=== PATIENT | male | born 1955 ===

== ENCOUNTER 2025-04-03 13:57 | Outpatient (AMB) | payer MEDICARE, SELFPAY ==
--- OUTSIDE RECORDS SUMMARY | 2025-04-03 16:09 | XMS_ITS | Encounter Summary ---
Author Organization [facility] Address [address] [place] [address] [place] [address] Phone Care Team Providers Care Defence Force Senior Officer Name Role Phone Stella Oneal MD Primary Care Provider [phone] Stella Oneal MD Unavailable Reason for Visit * Reason Onset Date Comments Establish Care 04/03/2025 Encounter Details Date Type Department Care Team (Late st Contact Info) Description 04/03/[address] [facility] [address] [place] [address] Stella Oneal MD 234 [facility] 7 [place] [address] [email or web address] Establish Care Social History Tobacco Use Types Packs/Day Years Used Date Smoking Tobacco: Never Smokeless Tobacco: Never Alcohol Use Standard Drinks/Week Comments Yes 0 (1 standard drink = 0.6 oz pur e alcohol) rare Education Answer Date Recorded Are you interested in more education? Not on camilo e 11/26/2022 Are you concerned about learning? Not on file 11/26/2022 No 11/26/2022 No 11/26/2022 Digital Access Answer Date Recorded No 12/27/2022 No 12/27/2022 Reliable internet access at home? Not on file 12/27/2022 Device with a working camera? Not on file Intimate Partner Violence Answer Date R ecorded Are you denied basic needs s uch as food, clothing, or medical care? No 06/12/2024 In the past 12 months have y ou been in a relationship with a person who hurts, threatens, or tries to control you? No 06/12/2024 Are you denied basic needs s uch as food, clothing, or medical care? No 06/12/2024 In the past 12 months have y ou been in a relationship with a person who hurts, threatens, or tries to control you? No 06/12/2024 Sex and Gender Information Value Date Recorded Sex Assigned at Male 09/29/2018 11:28 AM EST Legal Sex Male 9:55 PM EDT Gender Identity Male 09/29/2018 11:28 AM EST Sexual Orientation Straight 09/29/2018 11 :28 AM EST documented as of this encounter Progress Notes * Carlos Rice - 04/03/2025 9:38 AM EDT Pt called in to schedule;e with the new provider, please contact and advise. Central Support Jacket Changer (Please do not reply to this user; this inbox is not monitored.) Thank you. documented in this encounter Plan of Treatment Upcoming Encounters Date Type Department Care Team (Late st Contact Info) Description 05/02/2025 8:00 AM EDT Office Visit [facility] [address] [place] [address] Stella Oneal MD 234 [facility], [address] [place] [address] [email or web address] 05/09/2025 9:00 AM EDT Office Visit [facility] [address] [place] [address] Aliza Marin MBBS [address] [place] [address] 06/03/2025 8:30 AM EST Office Visit [facility] [address] [facility] 3rd Floor, [address] [place] [address] Valerie Ramos, TAMAR [address] [facility], [address] [place] [address] [email or web address] documented as of this encounter Visit Diagnoses Not on filedocumented in this encounter Additional Health Concerns Infection Onset Date Last Indicated Resolved Time 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 PCP - General Family Medicine 08/09/24 Stella Oneal MD [address] [place] [address] 7 [place] [address] [email or web address] Insurance Assigned Provider 11/04/24 documented as of this encounter Additional Source Comments The information contained in this document represents components of the legal health record. It is not the complete legal health record.[facility]
--- OUTSIDE RECORDS SUMMARY | 2025-04-03 16:10 | XMS_ITS | Encounter Summary ---
Author Organization Located Within [facility] Address [address] [place] [address] Phone Care Team Providers Care Silver Solderer Name Role Phone Stella Oneal MD Primary Care Provider Aliza Marin Primary Care Provider [phone] Stella Oneal MD Primary Care Provider Stella Oneal MD Unavailable [phone] Reason for Referral * Molecular Pathology - New Request Specialty Diagnoses / Procedures Referred By Nadege justice Referred To Contact Diagnoses Hyperlipidemia LDL goal <70 JOHNSON (nonalcoholic steatohepatitis) Procedures Hemochromatosis Gene Analysis Jessica Diaz PA [address] [place] [address] Phone: tel: fax: Referral ID Status Reason Start Date Expiration Date V isits Requested Visits Authorized [id number] New Request 06/06/2024 1 1 Encounter Details Date Type Department Care Team (Latest Contact Info) Description 06/06/2024 Transcribe Orders [facility] [address] [address] Jessica Diaz PA 10 [place] [address] Hyperlipidemia LDL goal <70 (Primary Dx); JOHNSON (nonalcoholic steatohepatitis) Social History Tobacco Use Types Packs/Day Years [...] with a working camera? Not on file Sex and Gender Information Value Date Recorded Sex Assigned at Male 09/29/2018 11:28 AM EST Legal Sex Male 9:55 PM EDT Gender Identity Male 09/29/2018 11:28 AM EST Sexual Orientation Straight 09/29/2018 11 :28 AM EST documented as of this encounter Plan of Treatment Upcoming Encounters Date Type Department Care Team (Late st Contact Info) Description 05/02/2025 8:00 AM EDT Office Visit [facility] [address] [place] [address] Stella Oneal MD 234 [facility] 7 [place] [address] [email or web address] 05/09/2025 9:00 AM EDT Office Visit [facility] 30 [place] [address] Aliza Marin MBBS [address] [place] [address] 06/03/2025 8:30 AM EST Office Visit [facility] [address] [place] [address] 3rd Floor, [address] [place] [address] Valerie Ramos, TAMAR [address] [facility], [address] [place] [address] [email or web address] documented as of this encounter Results * Ferritin (06/06/2024 11:39 AM EST) FERRITIN 52 30 - 400 ug/L [facility] Blood 06/06/2024 11:3 9 AM EST 06/06/2024 11:43 AM EST Jessica LIZ LAB BLOOD ORDERABLES Final Result Performing Organization Address [facility] Co de Phone Number [address] [address] * (ABNORMAL) Iron and iron binding capacity (06/06/2024 11:39 AM EST) IRON 71 45 - 160 ug/dL [facility] IRON BINDING CAPACITY 403 228 - 428 ug/dL [facility] TRANSFERRIN SATURAT. 18(L) 20 - 55 % [facility] Blood 06/06/2024 11:3 9 AM EST 06/06/2024 11:43 AM EST Jessica LIZ LAB BLOOD ORDERABLES Final Result Performing Organization Address [facility] Co de Phone Number [address] [address] * (ABNORMAL) Lipid panel (06/06/2024 11:39 AM EST) HDL 71 mg/dL [facility] Comment: Interpretation <40 mg/dL: Low HDL cholesterol (major risk factor for CHD) Greater than or equal to 60 mg/dL: High HDL cholesterol ( negative risk factor for CHD) HDL - cholesterol is affected by a number of factors, e.g. smoking, excerise, hormones, sex and age. CHOLESTEROL 131 0 - 240 mg/dL [facility] TRIGLYCERIDES 54 30 - 160 mg/dL [facility] LDL 49(L) 50 - 129 mg/dL [facility] Comment: LDL levels in terms of risk for coronary heart disease: <100 mg/dL: Optimal 100-129 mg/dL: Near or above optimal 130-159 mg/dL: Borderline high 160-189 mg/dL: High >190 mg/dL: Very High CARDIAC RISK RATIO 1.8(L) 3.4 - 5.0 C [facility] Blood 06/06/2024 11:3 9 AM EST 06/06/2024 11:42 AM EST us Jessica LIZ LAB BLOOD ORDERABLES Final Result [facility] [address] [place] [address] * Hemochromatosis Gene Analysis (06/06/2024 11:39 AM EST) Pathologist [facility] HFE Gene analysis SEE NOTE 4 01:24 PM [facility] LAB MED AND PAT+ Comment: (NOTE) Test Result Flag Unit RefValue Hereditary Hemochromatosis HFE Test Result Summary NEGATIVE Result SEE NOTE C282Y: Not detected. H63D: Not detected. Interpretation SEE NOTE This result reduces the risk but does not rule out either a diagnosis of or predisposition for hereditary hemochromatosis (HH). This assay does not rule out the presence of other disease-causing variants in the HFE gene or in other genes associated with hemochromatosis. Non-HFE-HH causes should also be considered. These results should be interpreted in the context of clinical findings, family history, and other laboratory testing (e.g. serum transferrin-iron saturation and serum ferritin). Genetic testing and other laboratory testing of an affected family member can determine if this result is of predictive value for this individual. A genetic consultation may be of benefit. ADDITIONAL INFORMATION An online research opportunity called [employer] ([email or web address]), a project of [employer], is available for the recipient of this genetic test. This patient registry collects de-identified genetic and health information to advance the knowledge of genetic variants. [facility] is a collaborator of [employer]. This may not be applicable for all tests. Test results should be interpreted in the context of clinical findings, family history, and other laboratory data. Misinterpretation of results may occur if the information provided is inaccurate or incomplete. Rare polymorphisms exist that could lead to false-negative or false-positive results. If results obtained do not match the clinical findings, additional testing should be considered. Bone Marrow transplants from allogenic donors will interfere with testing. Call [facility] for instructions for testing patients who have received a bone marrow transplant. One or more in silico tools were used to assist in the interpretation of these results. These tools are updated regularly and predictions for a given variant may change. Additionally, the predictability of these tools for the determination of pathogenicity is currently unvalidated. This test was developed and its performance characteristics determined by [facility] in a manner consistent with CLIA requirements. This test has not been cleared or approved by the U.S. Food and Drug Administration. Specimen WB Whole Blood Method SEE NOTE Droplet Digital Polymerase Chain Reaction (ddPCR) was used to test for the following three variants in the HFE gene; C282Y, H63D, and S65C. Because of the minimal effect on iron metabolism associated with the S65C variant, it is only reported when it is found with the C282Y variant (i.e. if the patient has the C282Y/S65C genotype). Released By SEE NOTE Mark Baumann MD A portion of the testing process was performed at [facility] site [id number]. Blood 06/06/2024 11:3 9 AM EST 06/06/2024 11:42 AM EST us Jessica LIZ LAB BLOOD ORDERABLES Final Result [facility] MED AND PAT+ [address] [place] [address] * (ABNORMAL) Liver fibrosis test (06/06/2024 11:39 AM EST) Fibrosis score 0.76 [facility] Interpretation (Fibrosis) SEE NOTE [facility] Comment: (NOTE) severe fibrosis Fibro Test Score (f) Metavir Score f>=0 and f<=0.21 : F0 (no fibrosis) f>0.21 and f<=0.27 : F0-F1 (no fibrosis) f>0.27 and f<=0.31 : F1 (minimal fibrosis) f>0.31 and f<=0.48 : F1-F2 (minimal fibrosis) f>0.48 and f<=0.58 : F2 (moderate fibrosis) f>0.58 and f<=0.72 : F3 (advanced fibrosis) f>0.72 and f<=0.74 : F3-F4 (advanced fibrosis) f>0.74 and f<=1.00 : F4 (severe fibrosis) HCV Fibrosis Grade F4 Q [facility] NECROINFLAMM SCORE 0.27 Q [facility] NECROINFLAMM GRADE SEE NOTE Q [facility] Comment: (NOTE) Result: A0-A1 NECROINFLAMM INTERP SEE NOTE [facility] Comment: (NOTE) no activity ActiTest Score (a) Metavir Score a>=0 and a<=0.17 : A0 (no activity) a>0.17 and a<=0.29 : A0-A1 (no activity) a>0.29 and a<=0.36 : A1 (minimal activity) a>0.36 and a<=0.52 : A1-A2 (minimal activity) a>0.52 and a<=0.60 : A2 (significant activity) a>0.60 and a<=0.62 : A2-A3 (significant activity) a>0.62 and a<=1.00 : A3 (severe activity) A2 Macroglobulin 376(H) 106 - 279 mg/dL [facility] Haptoglobin 97 43 - 212 mg/dL [facility] Apolipoprotein A1 170 94 - 176 mg/dL [facility] TOTAL BILIRUBIN 0.7 0.2 - 1.2 mg/dL [facility] GGT 90(H) 3 - 70 U/L [facility] ALT 31 9 - 46 U/L [facility] Specimen/Product ID [id number] [employer] [facility] Comments (Chemistry) SEE NOTE [employer] [facility] Comment: (NOTE) The reliability of results is dependent on compliance with the preanalytical and analytical conditions recommended by [employer]. The tests have to be deferred for: acute hemolysis, acute hepatitis, acute inflammation, extra hepatic cholestasis. The advice of a specialist should be sought for interpretation in chronic hemolysis and Gilbert's syndrome. The test interpretation is not validated in liver transplant patients. Isolated extreme values of one of the components should lead to caution in interpreting the results. In case of discordance between a biopsy result and a test, it is recommended to seek the advice of a specialist. The causes of these discordances could be due to a flaw of the test or to a flaw in the biopsy: i.e. a liver biopsy has a 33% variability rate for one fibrosis stage. FibroTest is interpretable for chronic hepatitis B and C, alcoholic and non alcoholic steatosis. ActiTest is interpretable for chronic hepatitis B and C. The performance characteristics have been determined by [facility]. It has not been cleared or approved by the U.S. Food and Drug Administration. Performance characteristics refer to the analytical performance of the test. [email or web address], [employer], the associated logo, [employer] and all associated [employer] valle are the registered trademarks of [employer]. All third alliance party valle - (R) and (TM) - are the property of their respective owners. (C) 1310-3841 [employer]. All rights reserved. Blood 06/06/2024 11:3 9 AM EST 06/06/2024 11:42 AM EST us Jessica LIZ LAB BLOOD ORDERABLES Final Result [employer] [facility] [address] [place] [address], [place] [phone] * (ABNORMAL) Comprehensive metabolic panel (06/06/2024 11:39 AM EST) SODIUM 138 133 - 146 mmol/L [facility] POTASSIUM 4.2 3.3 - 5.1 mmol/L [facility] CHLORIDE 105 96 - 108 mmol/L [facility] CO2 20(L) 21 - 35 mmol/L [facility] BUN 18 6 - 19 mg/dL [facility] CREATININE 0.90 0.5 - 1.5 mg/dL [facility] GLUCOSE 112(H) 70 - 99 mg/dL [facility] ALBUMIN 4.2 3.9 - 4.8 g/dL [facility] TOTAL PROTEIN 7.8 6.5 - 8.0 g/dL [facility] CALCIUM 9.1 8.4 - 10.3 mg/dL [facility] ALKALINE PHOSPHATASE 72 39 - 117 U/L [facility] TOTAL BILIRUBIN 0.7 0.0 - 1.2 mg/dL [facility] AST 43(H) 0 - 37 U/L [facility] ALT 38 0 - 40 U/L [facility] GLOBULIN 3.6 1 - 4.8 g/dL [facility] EGFR 93 >59 mL/min/1.7 3m2 [facility] Comment:Estimated glomerular filtration rate calculated using the CKD-EPI refit equation. ANION GAP 17 10 - 20 mmol/L [facility] Blood 06/06/2024 11:3 9 AM EST 06/06/2024 11:43 AM EST us Jessica LIZ LAB BLOOD ORDERABLES Final Result Performing Organization Address City/State/[facility] Co de Phone Number [address] [address] * (ABNORMAL) CBC (06/06/2024 11:39 AM EST) WBC 5.61 4.00 - 11.00 K/uL [facility] RBC 4.05(L) 4.50 - 5.90 M/uL [facility] HGB 11.8(L) 13.5 - 17.5 g/dL [facility] HCT 35.7(L) 41.0 - 53.0 % [facility] PLT 107(L) 150 - 450 K/uL [facility] MCV 88.1 80.0 - 100.0 fL [facility] MCH 29.1 27.0 - 31.0 pg [facility] MCHC 33.1 32.0 - 36.0 g/dL [facility] RDW 13.2 11.5 - 14.5 % [facility] MPV 11.4 8.4 - 12.0 fL [facility] NRBC 0.00 0.00 /100 WBCs [facility] ABSOLUTE NRBC 0.00 0.00 K/uL [facility] Blood 06/06/2024 11:3 9 AM EST 06/06/2024 11:43 AM EST Jessica LIZ LAB BLOOD ORDERABLES Final Result Performing Organization Address City/[facility]/ZIP Co de Phone Number [address] [address] * Ceruloplasmin (06/06/2024 11:39 AM EST) CERULOPLASMIN 34 20 - 60 mg/dL [facility] Blood 06/06/2024 11:3 9 AM EST 06/06/2024 11:42 AM EST Jessica LIZ LAB BLOOD ORDERABLES Final Result Performing Organization Address [facility] Co de Phone Number [address] [address] * Smooth Muscle Antibody (06/06/2024 11:39 AM EST) SMOOTH MUSCLE AB NEGATIVE AT 1:20 [facility] Comment: Performing Pathologist, Josemanuel Isabel M.D., Ph.D. [phone] Normal: Negative at 1:20 Blood 06/06/2024 11:3 9 AM EST 06/06/2024 11:42 AM EST Jessica LIZ LAB BLOOD ORDERABLES Final Result Performing Organization Address City/[facility] Co de Phone Number [address] [address] * Anti-Mitochondrial Antibody (AMA) (06/06/2024 11:39 AM EST) MITOCHONDRIAL AB NEGATIVE AT 1:20 [facility] Comment: Performing Pathologist, Josemanuel Isabel M.D., Ph.D. [phone] Normal: Negative at 1:20 Blood 06/06/2024 11:3 9 AM EST 06/06/2024 11:42 AM EST Jessica LIZ LAB BLOOD ORDERABLES Final Result [address] [address] * Liver kidney microsomal (LKM1) antibodies (06/06/2024 11:39 AM EST) Pathologist [facility] LKM1 ANTIBODIES <5.0 <=20.0 (Negative) [facility] Blood 06/06/2024 11:3 9 AM EST 06/06/2024 11:42 AM EST Jessica LIZ LAB BLOOD ORDERABLES Final Result Performing Organization Address [facility] Co de Phone Number [facility] [address] [place] [address] * AFP (non-maternal specimens) (06/06/2024 11:39 AM EST) [facility] AFP (NON-MATERNAL) <1.8 <7.9 ng/mL [facility] Comment: Test Methodology Maritza [id number] Patient results determined by assays using different manufacturers or methods may not be comparable. Blood 06/06/2024 11:3 9 AM EST 06/06/2024 11:43 AM EST Jessica LIZ LAB BLOOD ORDERABLES Final Result Performing Organization Address City/[facility] Co de Phone Number [facility] [address] [place] [address] * Cywsm-2-nqidxrhhbcj phenotyping (06/06/2024 11:39 AM EST) Pathologist [facility] ALPHA 1 ANTITRYPSIN 172 100 - 190 mg/dL [facility] Comment: (NOTE) ADDITIONAL INFORMATION Method: Nephelometry A1A PHENOTYPE MM bands WAIKOLOA D [facility] Comment: (NOTE) A single M isoform is detected. In the context of a normal kuzyn-3-kvsmodieece concentration, this is consistent with an MM phenotype. ADDITIONAL INFORMATION Method: Isoelectric Focusing, This assay identifies the phenotype of the circulating lnsbz-6-iolxvqfhyzp (A1A) protein. If the patient is on replacement therapy or has been recently transfused, the phenotype will detect patient and replacement or transfused plasma A1A protein. This test also cannot detect a null allele which could be responsible for an A1A deficiency. Blood 06/06/2024 11:3 9 AM EST 06/06/2024 11:42 AM EST us Jessica LIZ LAB BLOOD ORDERABLES Final Result [facility] MED[facility] [address] 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 06/19/2024 Assessment Noted Time PHQ-2 Depression Total Score: 0 07/13/20 23 10:16 PM EST documented as of this encounter Care Teams Silver Solderer Relationship Specialty Start Date End Date Stella Oneal MD [address] [place] [address], [address] [place] [address] [email or web address] PCP - General Family Medicine 06/02/23 07/02/24 Aliza Marin MBBS [address] [place] [address] [email or web address] PCP - General Medical Oncology 07/03/24 08/08/24 Stella Oneal MD [address] [place] [address] [address] [place] [address] [email or web address] PCP - General Family Medicine 08/09/24 Stella Oneal MD [address] [place] [address] 7 [place] [address] [email or web address] Insurance Assigned Provider 11/04/24 documented as of this encounter Additional Source Comments The information contained in this document represents components of the legal health record. It is not the complete legal health record.Located Within [facility]
--- OUTSIDE RECORDS SUMMARY | 2025-04-03 16:10 | XMS_ITS | Encounter Summary ---
Author Organization [facility] Address [address] [place] [id number] Phone Care Team Providers Care Fisheries Biologist Name Role Phone Stella Oneal MD Primary Care Provider [phone] Aliza Marin Primary Care Provider [phone] Stella Oneal MD Primary Care Provider Stella Oneal MD Unavailable [phone] Encounter Details Date Type Department Care Team (Late st Contact Info) Description 04/24/2024 Procedure Pass [facility] Endoscopy Admitting Dept Virtual Department [address] [place] [address] [phone] Social History Tobacco Use Types Packs/Day Years [...] Description 05/02/2025 8:00 AM EDT Office Visit [facility] [address] [place] [address] Stella Oneal MD [address] [facility] [address] [place] [address] [email or web address] 05/09/2025 9:00 AM EDT Office Visit [facility] [address] [place] [address] Aliza Marin MBBS [address] [place] [address] [email or web address] 06/03/2025 8:30 AM EST Office Visit [facility] [address] [place] [address] 3rd Floor, [address] [place] [address] Valerie Ramos, TAMAR [address] [place] [address], [address] [address] [email or web address] documented as of this encounter Visit Diagnoses Not on filedocumented in this encounter Additional Health Concerns Infection Onset Date Last Indicated Resolved Time MRSA 06/19/2024 06/19/2024 Assessment Noted Time PHQ-2 Depression Total Score: 0 07/13/20 23 10:16 PM EST documented as of this encounter Care Teams Fisheries Biologist Relationship Specialty Start Date End Date Stella Oneal MD [address] [place] [address] [address] [place] [address] [email or web address] PCP - General Family Medicine 06/02/23 07/02/24 Aliza Marin MBBS [address] [place] [address] [email or web address] PCP - General Medical Oncology 07/03/24 08/08/24 Stella Oneal MD [address] [place] [address], [facility] [address] [place] [address] [email or web address] PCP - General Family Medicine 08/09/24 Stella Oneal MD [address] [place] [address] [address] [place] [address] [email or web address] Insurance Assigned Provider 11/04/24 documented as of this encounter Additional Source Comments The information contained in this document represents components of the legal health record. It is not the complete legal health record.[facility]
--- OUTSIDE RECORDS SUMMARY | 2025-04-03 16:10 | XMS_ITS | Clinical Summary ---
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 200 each 1 10/08/19 21 Active nitroglycerin (NITROSTAT) 0.[address] 1 tablet (0.4 mg total) under the tongue every 5 (five) minutes as needed for chest pain. 30 tablet 5 02/10/20 22 Active metoprolol succinate (TOPROL-XL) 50 MG 24 hr tabletIndicatio ns:Essential hypertension TAKE 1 TABLET DAILY 90 tablet 1 09/09/19 23 Active amLODIPine (NORVASC) 5 MG tabletIndicatio ns:Ischemic heart disease Take 1 tablet (5 mg total) by mouth daily. 90 tablet 3 02/03/20 23 Active albuterol 90 mcg/actuation inhalerIndicati ons:Acute cough Inhale 2 puffs into the lungs every 6 (six) hours as needed for wheezing. 18 g 1 11/04/19 24 Active OPTICHAMBER [facility] Spcr USE DIRECTED WITH INHALER 11/04/19 24 Active MAGNESIUM ORAL Take 1 tablet by mouth daily. Active ascorbic acid (VITAMIN C ORAL) Take 1 tablet by mouth daily. Active omeprazole (PRILOSEC) 20 MG capsule Take 20 mg by mouth 3 (three) times a week. T--Tue Active cyanocobalamin, vitamin B-12, 1000 MCG tabletIndicatio ns:Other vitamin B12 deficiency anemia Take 1 tablet on alternate days 90 tablet 3 05/31/20 24 Active rosuvastatin (CRESTOR) 10 MG tabletIndicatio ns:Hyperlipidem ia LDL goal <70 TAKE 1 TABLET DAILY 90 tablet 3 10/23/19 25 Active ergocalciferol (DRISDOL) 50,000 unit capsule Take 1 capsule by mouth once a week. 10/12/19 25 Active lisinopril (PRINIVIL,ZESTR IL) 2.5 MG tabletIndicatio ns:Essential hypertension Take 1 tablet (2.5 mg total) by mouth daily. 90 tablet 3 03/22/20 25 Active dulaglutide (TRULICITY) 1.5 mg/0.5 mL subcutaneous injectionIndica tions:Type 2 diabetes mellitus with microalbuminuri a, without long-term current use of insulin INJECT 0.5ML (=1.5 MG) SUBCUTANEOUSLY ONCE WEEKLY (EVERY 7 DAYS) 6 mL 3 03/26/20 25 Active metFORMIN (GLUCOPHAGE) 1000 MG tabletIndicatio ns:Type 2 diabetes mellitus with microalbuminuri a, without long-term current use of insulin Take 1 tablet (1,000 mg total) by mouth 2 (two) times a day with meals. 180 tablet 3 03/26/20 25 Active lisinopril (PRINIVIL,ZESTR IL) 2.5 MG tabletIndicatio ns:Essential hypertension TAKE 1 TABLET DAILY. 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 21 capsule 03/04/20 25 025 Active Problems Problem Noted Date Diagnosed Date Positive LOBO (antinuclear antibody) 07/11/2024 Assessment & Plan (01/21/2025 3:51 PM EDT): Followed by rheumatology. Assessment & Plan (10/22/2024 10:56 AM EDT): Followed by rheumatology. Assessment & Plan (08/09/2024 9:24 AM EST): W/ splenomegaly, elev LOBO. Likely rheum issue, reviewed chart w pt today. Has rheum appt forthcoming (outside, [facility] no booking til November) Splenomegaly 07/11/2024 Normocytic anemia 07/11/2024 Assessment & Plan (01/21/2025 3:51 PM EDT): Followed by hematology. Assessment & Plan (10/22/2024 10:56 AM EDT): Followed by hematology. Diverticulosis 04/24/2024 Thrombocytopenia 04/12/2024 Assessment & Plan (01/21/2025 3:51 PM EDT): Follows with hematology. Assessment & Plan (10/22/2024 10:56 AM EDT): Concern for rheumatological condition underlying, followed by both rheumatology as well as hematology. Assessment & Plan (08/09/2024 9:24 AM EST): W/ splenomegaly, elev LOBO. Likely rheum issue, reviewed chart w pt today. 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 It has been stable over the past few years. He has multiple comorbidities, but currently is in his usual state of health. He specifically denies unintentional weight loss, fevers, night sweats, lymph node swelling, chest pain, abdominal pain, rash or concerning bone pain. He has had infections requiring outpatient antibiotic use, most recently in March 2024, but no history of pneumonia, pyelonephritis or admissions for sepsis. He has a history of JOHNSON. Ultrasound 05/11/2024 revealed *Increased hepatic echogenicity, most commonly representing hepatic steatosis. Fibrosis or hepatitis could appear similar. *Splenomegaly. 15.[address] 2018 also revealed splenomegaly. LOBO positive titer 1: 320 speckled homogenous B12 239 - on metformin with no plans to discontinue. Restarted oral B12 with improvement to > 400. Pt was referred to his GI provider for assessment of liver function - advanced fibrosis on fibroscan, low plts, splenomegaly Patient referred to rheumatology regarding his positive LOBO. No dry eyes, dry mouth, rash or joint swelling. Arthralgia has been attributed to osteoarthritis. Pt will not start oral iron; ferritin and retic Hb normal. 4 month appt with labs prior. No immediate indication for imaging or bone marrow exam. 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 It has been stable over the past few years. He has multiple comorbidities, but currently is in his usual state of health. He specifically denies unintentional weight loss, fevers, night sweats, lymph node swelling, chest pain, abdominal pain, rash or concerning bone pain. He has had infections requiring outpatient antibiotic use, most recently in March 2024, but no history of pneumonia, pyelonephritis or admissions for sepsis. He has a history of JOHNSON. 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 Ultrasound 05/11/2024 revealed *Increased hepatic echogenicity, most commonly representing hepatic steatosis. Fibrosis or hepatitis could appear similar. *Splenomegaly. 15.[address] 2018 also revealed splenomegaly. LOBO positive titer 1: 320 speckled homogenous B12 239 - on metformin with no plans to discontinue. Restart oral B12. Pt is referred to his GI provider for assessment of liver function Patient will also be referred to rheumatology regarding his positive LOBO. No dry eyes, dry mouth, rash or joint swelling. Arthralgia has been attributed to osteoarthritis. 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 It has been stable over the past few years. He has multiple comorbidities, but currently is in his usual state of health. He specifically denies unintentional weight loss, fevers, night sweats, lymph node swelling, chest pain, abdominal pain, rash or concerning bone pain. He has had infections requiring outpatient antibiotic use, most recently in March 2024, but no history of pneumonia, pyelonephritis or admissions for sepsis. He has a history of JOHNSON. 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 Ultrasound earlier this year was limited with no evaluation of the spleen. Iron studies April 2024 unremarkable other than a borderline transferrin not diagnostic of iron deficiency. At this time I would recommend the panel listed below and a complete abdominal US. He will follow up in 3 weeks to review results and to discuss any further management recommendations. Assessment & Plan (04/12/2024 8:55 AM EDT): Isolated mild thrombocytopenia, may be secondary to NAFLD but will refer to hematology for further assessment. Nocturnal leg cramps 04/12/2024 Assessment & Plan (01/21/2025 3:54 PM EDT): Improved with good hydration. Assessment & Plan (10/22/2024 10:57 AM EDT): Has now improved. Assessment & Plan (04/12/2024 8:56 AM EDT): He reports experiencing bad leg cramps at night. Increasing water intake is recommended. If symptoms persist, a magnesium supplement may be considered. [place] with quinine may also help. Will check iron stores today to ensure REBA is not playing a role. Plantar fasciitis of right foot 07/14/2023 Assessment & Plan (04/12/2024 8:54 AM EDT): Improved with orthotics. Assessment & Plan (07/14/2023 8:28 AM EST): Chronic pain in the plantar aspect of patient's right foot, with point TTP at the proximal insertion of the plantar fascia, consistent with plantar fasciitis. Discussed conservative treatment with exercises and shoe inserts. If not improved can refer to podiatry for further evaluation. - HEP provided Lumbar radiculopathy, chronic 07/14/2023 Assessment & Plan (01/21/2025 3:53 PM EDT): No recent issues. Assessment & Plan (07/14/2023 8:30 AM EST): Patient has had 1-2 years of left sided sciatica, without numbness or weakness present. No red flag signs or symptoms and no midline TTP on exam. Positive slump test, consistent with left-sided sciatica. Conservative management with HEP provided. If not improved will refer to PT for further evaluation. XR L-Spine ordered to ensure no concerning central pathology, no indication for more advanced imaging at this point. - HEP provided for patient - Follow-up XR L-Spine Coronary atherosclerosis due to lipid rich plaqu e 10/26/2022 Assessment & Plan (01/21/2025 3:52 PM EDT): Asymptomatic. Maintained on rosuvastatin 10mg daily with last LDL-C at goal, also on ASA 81mg daily. Follows with cardiology with follow-up in place. Assessment & Plan (11/29/2024 8:12 AM EDT): Continues to asymptomatic from a cardiovascular standpoint. We will continue to optimize cardiac risk factors. He is on aspirin 81 mg daily, lisinopril 2.5 mg daily, metoprolol 50 mg daily, rosuvastatin 10 mg daily, amlodipine 5 mg daily. SBP goal less than 130/80. LDL goal less than 55 mg/dL. Most recent lipid profile shows well-controlled cholesterol. BP today was elevated 160/80. At the check, got 140/80. I did ask him to check his blood pressures at home letting us know if they remain higher than goal and if so we will increase his lisinopril to 5 mg daily Assessment & Plan (10/22/2024 10:57 AM EDT): Continue ASA 81mg daily, maintained on rosuvastatin 10 mg daily and due for repeat lipid panel, ordered. Assessment & Plan (04/12/2024 8:52 AM EDT): Continue ASA 81mg daily, recent lipid panel at goal on rosuvastatin 10mg daily. Assessment & Plan (11/24/2023 8:12 AM EDT): Currently asymptomatic. Will continue to optimize his cardiac risk factors. He is on aspirin 81 mg daily which she will remain on lifelong, amlodipine 5 mg daily, rosuvastatin 10 mg daily, lisinopril 2.5 mg daily, metoprolol 50 mg daily. He is encouraged follow heart healthy diet including low sodium and to continue being active. Assessment & Plan (07/14/2023 8:25 AM EST): Maintained on ASA and rosuvastatin with last lipid panel at goal. Assessment & Plan (10/26/2022 8:07 AM EDT): Anginal symptoms have resolved on amlodipine. We will continue to optimize his cardiovascular risk factors. He will remain on 81 mg aspirin lifelong. His most recent LDL was 45 mg/dL in August, well under goal on atorvastatin which he will continue without change. He is active and does not smoke. Right inguinal hernia 04/11/2020 Assessment & Plan (01/21/2025 3:54 PM EDT): No signs or symptoms of strangulation. Assessment & Plan (10/10/2020 8:41 AM EST): Continues with only minimal symptoms Carpal tunnel syndrome 06/24/2017 Type 2 diabetes mellitus wit h microalbuminuria, without long-term current use of insulin 06/24/2017 Assessment & Plan (01/21/2025 3:53 PM EDT): Last A1c at goal, maintained on Trulicity 1.5mg weekly as well as metformin 1000mg BID. Follows with ophthalmology routinely. Maintained on rosuvastatin 10mg daily with last LDL-C at goal. - Repeat A1c today - Continue antihyperglycemic medications as previously prescribed pending repeat A1c Assessment & Plan (10/22/2024 10:57 AM EDT): Last A1c at goal, maintained on Trulicity 1.5mg weekly as well as metformin 1000mg BID. Follows with ophthalmology routinely. - Repeat A1c today - Continue antihyperglycemic medications as previously prescribed pending repeat A1c Assessment & Plan (04/12/2024 8:53 AM EDT): Last A1c at goal, maintained on Trulicity 1.5mg weekly as well as metformin 1000mg BID. Follows with ophthalmology routinely. - Repeat A1c today - Continue antihyperglycemic medications as previously prescribed pending repeat A1c Assessment & Plan (07/14/2023 8:26 AM EST): Last A1c at goal, maintained on Trulicity 1.5mg weekly as well as metformin 1000mg BID. Follows with ophthalmology routinely. - Repeat A1c today - Continue antihyperglycemic medications as previously prescribed pending repeat A1c - Follow-up with ophthalmology in place - Follow-up in 6 months given excellent glycemic control Assessment & Plan (10/10/2020 8:37 AM EST): Patient reports home blood sugar readings continue to be quite good. Readings are averaging about 130. No hypoglycemic reactions. Tolerating Metformin and Trulicity Assessment & Plan (10/07/2020 8:49 AM EST): Controlled based on hemoglobin A1c of 6.0% is a few days too soon to repeat her hemoglobin A1c. He does have mildly elevated fasting glucose not horrible I suspect that his glucose levels throughout the day are good because it results in a good hemoglobin A1c overall. I would not make any changes to his regimen should continue Trulicity and Metformin. Assessment & Plan (01/28/2020 8:52 AM EDT): Very good control hemoglobin A1c 6.4% no changes continue metformin and Trulicity. Assessment & Plan (08/07/2019 8:56 AM EST): Controlled hemoglobin A1c 6.4%. I would not make any changes continue metformin and Trulicity. We will repeat urine microalbumin and lipid panel with then the follow-up visit in 6 months time. His blood pressure is controlled he is on a small dose of lisinopril. Microalbumin was elevated but with this improvement in A1c I suspect that the microalbumin may be within the reference range. Assessment & Plan (05/03/2019 9:50 AM EDT): Controlled based on glycemic levels on his meter. Could not repeat the hemoglobin A1c today but I assume is probably less than 7% he will continue on metformin at the maximum dose and Trulicity 1.5 mg weekly. I will give him a follow-up appointment in 3 months we can repeat the A1c then if everything is good we can see him every 6 months. Assessment & Plan (03/15/2019 12:34 PM EDT): Uncontrolled. His hemoglobin A1c is 8.0% he does have postprandial hyperglycemia so a GLP-1 agonist will help him. He also has elevated fasting blood glucose levels. 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 I also discussed the use of Actos which is an insulin medical dir and all these medications have cardiovascular benefits. However since the patient can lose weight I think the GLP-1 agonists will work out best for him. I will prescribe Trulicity.The patient was informed that GLP-1 agonists have four mechanisms of action. It acts as a neurotransmitter acting on the hypothalamus to suppress appetite. It also decreases gastric emptying, so that the patient feels full and won't eat as much thereby improving glycemic levels. It prevents glucagon secretion thereby inhibiting hepatic gluconeogenesis. Lastly, it stimulates insulin secretion after a meal in a glucose dependent and prevents post-prandial hyperglycemia. The patient does not have medullary thyroid carcinoma or history of pancreatitis so it should be safe to use. The patient was also informed that they may experience nausea the first few weeks and this should improve. Other adverse events include vomiting, diarrhea and constipation. Assessment & Plan (01/19/2019 12:46 PM EDT): Uncontrolled. Hemoglobin A1c is 8.0%. This is accurate he is not anemic. At this point we are going to plan to CGM to see what his glucose levels are throughout the day but I suspect he is having postprandial hyperglycemia. In the meantime I discussed with him multiple medications. I discussed the use of Actos which is inexpensive and has cardiovascular benefits also helps with lipid control. 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 He is not aware of having macular edema and osteoporosis which are contraindications of course congestive heart failure that he does not have with normal left ventricular function. The second agent I discussed was GLP-1 agonist he has no contraindications such as medullary thyroid carcinoma or pancreatitis. This is a weekly injectable that would definitely work with improving postprandial hyperglycemia improve glucose control overall and cause weight loss but is associated with nausea, vomiting, diarrhea, constipation and the only way to find out if he tolerates it is to try the medication. I also discussed SGLT2 inhibitors with him which is a wonderful medication with cardiovascular benefits and the only known drug to reverse renal insufficiency. However this medication is associated with polyuria though patient will have to have plenty of hydration and he may be urinating quite often especially in the first 2 weeks. 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 In any case we are not going to start any medications now he is going to have to CGM placed and we will see how he does with this. I have also asked him to monitor his glucose levels twice a day always a fasting glucose and a second alternating between lunch, dinner, and bedtime. He should bring in the sensor within 2 weeks I will try to give him a follow-up appointment in 2 weeks but I do not think we have any availability may be he can come back in 5 to 6 weeks. Eczema 06/24/2017 Erectile disorder due to medical condition in jim dobbins patient 06/24/2017 Assessment & Plan (10/10/2020 8:38 AM EST): Patient reports that he feels he is tolerating Cialis better than the Viagra and likes the way he feels with it but it is not working as well as the Viagra. No negative effects. He has been taking the initial 10 mg dose GERD (gastroesophageal reflux disease) 7 Hearing loss 06/24/2017 Osteoarthritis 06/24/2017 Psoriasis 06/24/2017 Ischemic heart disease 06/20/2017 Assessment & Plan (10/22/2024 10:56 AM EDT): Followed by cardiology, without symptoms of angina or signs of HF. Follow-up with cardiology in place. Assessment & Plan (04/12/2024 8:52 AM EDT): Followed by cardiology, without symptoms of angina or signs of HF. Follow-up with cardiology in place. Assessment & Plan (07/14/2023 8:25 AM EST): Followed by cardiology, without symptoms of angina or signs of HF. Assessment & Plan (10/10/2020 8:36 AM EST): Patient continues to feel well. No angina or shortness of breath. Good energy level. Assessment & Plan (10/17/2017 3:36 PM EDT): He has a history of coronary artery disease status post stenting of his LAD on February 10, 2017. His nuclear stress test showed only a minimal amount of anterior lateral ischemia may be consistent with a diagonal branch versus artifact. His LAD stent appears patent in his circumflex stenosis of 60% appears [id number]. this is a low risk stress test. he should remain on aspirin lifelong. He should continue on clopidogrel for at least one year from the time the stent. We'll continue to optimize his other cardiac risk factors. He may safely come off the clopidogrel this coming December. I told him if the chest pressure he has with stress at work continues then we will double up his metoprolol. Assessment & Plan (06/20/2017 4:38 PM EST): He has a history of coronary artery disease status post stenting of his LAD on February 10, 2017. His recent nuclear stress test showed only a minimal amount of anterior lateral ischemia may be consistent with a diagonal branch versus artifact. His LAD stent appears patent in his circumflex stenosis of 60% appears [id number]. I reassured him that this is a low risk stress test. He's had some atypical chest pain. I told him if his chest pain persists or if he starts to develop exertional chest pain, he should let me know and we will work it up further. Otherwise he should remain on aspirin lifelong. He should continue on clopidogrel for at least one year from the time the stent. We'll continue to optimize his other cardiac risk factors. His heart rate is a little bit elevated today. If it remains high when I follow- up with him I will double up his metoprolol to 100 mg daily. Hyperlipidemia LDL goal <70 06/20/2017 Assessment & Plan (01/21/2025 3:53 PM EDT): Last LDL-C at goal, continue rosuvastatin 10mg daily. Assessment & Plan (11/29/2024 8:12 AM EDT): Continue rosuvastatin 10 mg daily Assessment & Plan (10/22/2024 10:57 AM EDT): Last lipid panel at goal, due for repeat. Continue rosuvastatin 10 mg daily pending repeat lipid panel. Assessment & Plan (04/12/2024 8:53 AM EDT): Most recent LDL-C at goal, continue rosuvastatin 10mg daily. Assessment & Plan (11/24/2023 8:12 AM EDT): LDL at goal of less than 70. He is on rosuvastatin 10 mg daily which she will continue without change. Assessment & Plan (07/14/2023 8:26 AM EST): Last LDL-C at goal. Maintained on rosuvastatin 10mg daily Assessment & Plan (10/07/2020 8:50 AM EST): LDL level was in the reference range previously of 46 mg/dL requested repeat level. Continue atorvastatin 80 mg daily. Assessment & Plan (01/28/2020 8:52 AM EDT): Controlled. LDL was 46 mg/dL HDL 70 mg/dL continue atorvastatin. Assessment & Plan (01/19/2019 12:48 PM EDT): Controlled. The LDL was 38 mg/dL. He should continue atorvastatin 80 mg daily. He does have mild elevation of his transaminases but did not 2 or 3 times above the upper limit of normal so he can continue with the statin. Assessment & Plan (10/17/2017 3:36 PM EDT): Continue atorvastatin. Assessment & Plan (06/20/2017 4:38 PM EST): He is appropriately on atorvastatin. Essential hypertension 06/20/2017 Assessment & Plan (01/21/2025 3:52 PM EDT): BP at goal today, continue lisinopril 2.5mg daily, metoprolol succinate 50mg daily, amlodipine 5mg daily. Assessment & Plan (11/29/2024 8:12 AM EDT): Blood pressure little higher than goal of less than 130/80. Continue current medications without change. He is encouraged for low-sodium diet and to check his blood pressures at home letting us know if his blood pressures remain elevated we will increase his lisinopril to 5 mg daily. Assessment & Plan (10/22/2024 10:56 AM EDT): BP initially elevated, at goal on repeat. Continue current antihypertensive medication regimen. Assessment & Plan (04/12/2024 8:52 AM EDT): BP at goal today, continue amlodipine and lisinopril as prescribed. Assessment & Plan (12/19/2023 4:09 PM EDT): Carlos Hernandez has hypertension and he is taking the above medication as directed without any side effects. his blood pressure is within normal limits and stable. he will follow up as directed. Assessment & Plan (11/24/2023 8:12 AM EDT): Blood pressure is mildly elevated today 144/78. He is on amlodipine 5 mg daily, lisinopril 2.5 mg daily, metoprolol 50 mg daily which she will continue without change. SBP goal less than 130/80. If he checks blood pressure at home and blood pressures remain elevated then we will adjust his medication as needed. Assessment & Plan (07/14/2023 8:24 AM EST): BP initially elevated, at goal on repeat. - Continue amlodipine 5mg and lisinopril 2.5mg daily Assessment & Plan (10/26/2022 8:06 AM EDT): Under good control on amlodipine, metoprolol and lisinopril. Continue without change. Assessment & Plan (10/07/2020 8:49 AM EST): Controlled on multiple antihypertensive medications urine microalbumin creatinine ratio not elevated. He continues on lisinopril for renal protection. Assessment & Plan (01/28/2020 8:52 AM EDT): Good control. Urine microalbumin creatinine ratio is negative continue lisinopril and beta-blockers. Assessment & Plan (01/19/2019 12:47 PM EDT): His blood pressure is controlled metoprolol this is fine but he does have microalbuminuria and he either needs an SINDI inhibitor or angiotensin receptor tere for renal protection. I will prescribe lisinopril 2.5 mg again this is for renal protection and blood pressure is controlled. Assessment & Plan (10/17/2017 3:36 PM EDT): His blood pressures well controlled on the current medications. If it remains high would double up his metoprolol. Assessment & Plan (06/20/2017 4:38 PM EST): His blood pressures only borderline high. If it remains high we will double up his metoprolol. Hepatic steatosis 06/20/2017 Assessment & Plan (07/14/2023 8:27 AM EST): Mild transaminitis on last CMP. On review of imaging no definitive finding of FLD. - Repeat CMP today - RUQ U/S ordered to evaluate Resolved Problems Problem Noted Date Diagnosed Date Resolved Date Nasal abscess 03/30/2024 04/12/2024 Assessment & Plan (03/30/2024 2:53 PM EDT): Nasal abscess s/p I&D at ED on 03/27. Culture tested positive for MRSA, currently finishing course of TMP-SMX. He is advised to continue the current antibiotic regimen, Bactrim, for an additional 3 days, for a total of 7 day course following I&D. The stitches will be removed by the ENT specialist during the upcoming appointment next week. He is also using mupirocin ointment on both sides of the nose to prevent further infection and aid in healing. No signs or symptoms of systemic infection today. Photosensitivity dermatitis 12/30/2023 04/12/2024 Assessment & Plan (01/06/2024 2:09 PM EDT): Significant improvement with systemic steroids. He should finish his course and monitor symptoms. If symptoms worsen he should follow up in clinic. Assessment & Plan (12/30/2023 2:33 PM EDT): Minimal relief from prednisone burst, will do a longer taper. Labs to r/o other etiology. Follow up in 1-2 weeks, sooner if symptoms worsen. Encounter for staple removal 12/30/2023 04/12/2024 Assessment & Plan (12/30/2023 2:34 PM EDT): 5 denisse removed from head without difficulty. No localized erythema or edema, no concern for infection. Rash and other nonspecific skin eruption 12/12/2023 04/12/2024 Assessment & Plan (12/19/2023 4:25 PM EDT): Emeterio has an improving rash of the left elbow. He is status post doxycycline. I advised him to continue with the mupirocin ointment as directed. He will call if there are any other issues or concerns. He understands and agrees. Assessment & Plan (12/12/2023 12:37 PM EDT): Emeterio presents for rash-status post antibiotics a month ago. I would imagine that the doxycycline has caused a skin reaction as he notes he has been out in the sun every day for work. I advised against doxycycline and being in the sun if this is given in the future. I started him on a 50 mg prednisone burst for the next 5 mornings and to call if this does not improve or if this gets worse. I will see him back in a week. I informed him to call if this is getting worse in the meantime. If this is worsening I would consider ordering lab work. He understands and agrees with this plan of action. Cellulitis of left upper extremity 12/12/2023 04/12/2024 Assessment & Plan (12/12/2023 12:36 PM EDT): Emeterio was diagnosed with cellulitis of the left upper extremity and I treated him with mupirocin cream-to be used as directed. I informed him to call if this does not improve or if this gets [id number] in a week. He understands and agrees. Right ankle pain 12/12/2023 04/12/2024 Assessment & Plan (12/19/2023 4:08 PM EDT): Improved pain. I reviewed the x-ray results showing arthritis and guidance given. He is doing his exercises. Assessment & Plan (12/12/2023 12:37 PM EDT): Emeterio presents for acute right ankle pain. I will have him go for an x-ray to rule out arthritic changes-he denies any recent fall or trauma or recent long travel- plane ride. I have a low suspicion for DVT thus I did not order a ultrasound today but if this does not improve with exercise that I gave him and there is no issues with the x-ray that he is getting this week I will consider further workup with an ultrasound. I informed him to call if there are any other issues or [id number] in a week. He understands and agrees. Inflamed sebaceous cyst 10/13/202304/01 Assessment & Plan (10/13/2023 2:57 PM EDT): Patient presented with a few weeks of painful growth on his posterior scalp, with appearance consistent with an inflamed sebaceous cyst with underlying fluctuance and induration. Mild surrounding erythema, no streaking. He has had no systemic infectious symptoms. Unable to express much purulent fluid, therefore performed I&D today. Verbal consent obtained, lesion was infiltrated with 2% lidocaine with epinephrine, 2 mm punch was then used, able to express contents of cyst with purulent then serosanguineous fluid. Patient tolerated procedure well without any complications. Will send in for course of antibiotics given inflamed appearance of sebaceous cyst. As patient has not had prior difficulties with this cyst previously, will hold off on cyst removal and discussed should he have any further issues down the road could schedule him for excision of cyst. - Start doxycycline 100mg BID for 7 days - Continue using warm compresses to encourage drainage - Follow-up if not improved Walking pneumonia 07/27/2017 11/14/2017 Assessment & Plan (07/27/2017 4:06 PM EST): Carlos was diagnosed with walking pneumonia and he was advised to take the above antibiotic. He was also given a steroid burst for 5 days (40 mg a day). He will use his inhaler as needed. He will call if this does not improve. He understands and agrees. Elevated liver function tests 06/24/2017 01/21/2025 Intertrigo 06/24/2017 04/12/2024 Encounters Date Type Department Care Team Description 04/03/2025 Telephone [facility] [address] [place] [address] Stella Oneal MD Establish Care 03/21/[address] [address] Cydney Anderson [place] 03/04/2025 12:40 PM EDT Office Visit [facility] [address] [place] [address] Shant Freeman PA-C Bashista, Ene Lay PA-C Acute folliculitis (Primary Dx) 03/04/2025 Nurse Triage [address] [address] Stella Oneal MD Triage ([place]- abscess groin area) 02/09/[address] [address] Stella Oneal MD Medication Refill 01/21/2025 3:51 PM EDT - 01/21/2025 11:59 PM EDT Hospital Encounter [facility] [address] [place] [address] Stella Oneal MD Discharge Disposition: Home or Self Care 01/21/2025 3:30 PM EDT Office Visit [address] [address] Stella Oneal MD Type 2 diabetes mellitus with microalbuminuria, without long-term current use of insulin (Primary Dx); Normocytic anemia; Positive LOBO (antinuclear antibody); Thrombocytopenia; Coronary atherosclerosis due to lipid rich plaque; Essential hypertension; Hyperlipidemia LDL goal <70; Lumbar radiculopathy, chronic; Right inguinal hernia; Nocturnal leg cramps from Last 3 Months Immunizations Immunization Administration Dates Next Due COVID-19 (Pre-05/23) Pfizer Vaccine, mRNA, PF 09/15/2020,08/25/2020 COVID-19 Pfizer Comirnaty Vaccine 12+ 05/04/2023 Hepatitis A, Adult 04/01/2017 INFLUENZA, SPLIT VIRUS, TRIV ALENT W/ PRESERVATIVE IM 05/08/2015 Influenza High-Dose Quadriva lent Preservative Free IM 06/10/2022 Influenza Quadrivalent Adjuv anted Preservative Free IM 06/19/2023,05/04/2023,05/04/2021 Influenza Quadrivalent Preservative Free IM 04/01,05/04/2018 Influenza Quadrivalent w/ Preservative IM 2016 Influenza Recombinant Иван valent Preservative Free IM 05/08/2019 Influenza Trivalent Adjuvant ed Preservative free IM 04/10/2024 Influenza, Unspecified Formulation 05/04/2023 Pneumococcal conjugate PCV13 06/02/2018 Pneumococcal conjugate PCV20 06/10/2022 Pneumococcal polysaccharide PPSV23 05/08/2019 RSV Vaccine (bivalent) 04/10/2024,05/04/2023 RSV Vaccine (monovalent, adjuvanted) 05/04/2023 Td (adult),2 Lf Tetanus Toxo id, PF, Adsorbed 07/14/2023,10/19/2002 Tdap 06/30/2013 Typhoid, ViCPs 07/14/2017 Zoster live 09/11/2015 Zoster recombinant 10/10/2020,07/11/2020 Family History Medical History Relation Comments Diabetes mellitus Father 2 Stroke Mother 2 Relation Status Comments Father 1 Father 2 Mother 1 Alive Mother 2 Social History Tobacco Use Types Packs/Day Years Used Date Smoking Tobacco: Never Smokeless Tobacco: Never Tobacco Cessation:Counseling Given: Not Answered Alcohol Use Standard Drinks/Week Comments Yes 0 [...] Orientation Straight 09/29/2018 11 :28 AM EST Last Filed Vital Signs Vital Sign Reading Time Taken Comments Blood Pressure 123/72 03/04/2025 12:20 PM EDT Pulse 94 03/04/2025 12:20 PM EDT Temperature 37 C (98.6 F) 03/04/2025 12:20 PM EDT Respiratory Rate 18 03/04/2025 12:20 PM EDT Oxygen Saturation 97% 03/04/2025 12:20 PM EDT Inhaled Oxygen Concentration - - Weight 94.3 kg (208 lb) 03/04/2025 12:20 PM EDT Height 182.9 cm (6') 03/04/2025 12:20 PM EDT Body Mass Index 28.21 03/04/2025 12:20 PM EDT Plan of Treatment Upcoming Encounters Date Type Department Care Team (Late st Contact Info) Description 05/02/2025 8:00 AM EDT Office Visit [facility] [address] [place] [address] Stella Oneal MD [address] [facility], [address] [place] [address] [email or web address] 05/09/2025 9:00 AM EDT Office Visit [facility] [address] [place] [address] Aliza Marin MBBS [address] [place] [address] 06/03/2025 8:30 AM EST Office Visit [facility] [address] [facility] [address], [address] [place] [address] Valerie Ramos, TAMAR [address] [facility], [address] [place] [address] Health Maintenance Due Date Last Done Comments COLOGUARD 2000 FIT TEST 2000 FOBT 2000 SIGMOIDOSCOPY 2000 VIRTUAL COLONOSCOPY 2000 HEPATITIS A VACCINES (2 of 2 - Risk 2-dose series) 09/29/2017 04/01/2017 DEPRESSION SCREENING 07/13/2024 07/13/2023 DIABETIC EYE EXAM 01/29/2025 01/30/2024, 05/19/2021 INFLUENZA VACCINE (#1) 2025 , 06/19/2023, 06/19/2023, Additional history exists COVID-19 VACCINE ( season) 2025 04/10/2024, 05/04/2023, 06/14/2022, Additional history exists HEMOGLOBIN A1C 07/23/2025 01/21/2025, 10/01, 04/12/2024, Additional history exists BLOOD PRESSURE 09/04/2025 03/04/2025 CREATININE LEVEL 10/29/2025 10/29/2024, 07/2025, 07/09/2024, Additional history exists LIPID PANEL 10/29/2025 10/29/2024, 09/29, 06/06/2024, Additional history exists POTASSIUM LEVEL 10/29/2025 10/29/2024, 09/29, 07/09/2024, Additional history exists URINE MICROALBUMIN/CREATININE RATIO 10/29/2025 10/29/2024, 07/14/2023, 10/13/2021, Additional history exists COLONOSCOPY 04/24/2031 04/24/2024, 04/0 09/2018, 10/31/2018, Additional history exists COLORECTAL CANCER SCREENING 04/24/2031 Adult Td,Tdap Booster 07/14/2033 07/14/2023 , 06/30/2013, 10/19/2002 ZOSTER VACCINES Completed 10/10/2020, 07/01, 09/11/2015 PNEUMOCOCCAL VACCINES (50+ years) Completed 06/10/2022, 05/08/2019, 06/02/2018 RSV VACCINE Completed 04/10/2024, 10/2022, 05/04/2023 HEPATITIS C SCREENING Completed 10/10/2024 , 06/06/2024, 05/10/2024, Additional history exists SMOKING STATUS SCREENING (Once After 26 Yrs) Completed 01/21/2025 HIB VACCINES Aged Out No longer eligi ble based on patient's age to complete this topic MENINGOCOCCAL VACCINES (ACWY) Aged Out No longer eligible based on patient's age to complete this topic MENINGOCOCCAL VACCINES (B) Aged Out N o longer eligible based on patient's age to complete this topic Medical Devices Implanted Type Area Component Engineer Device Identifier Shelf Expiration Date Model / Serial / Lot Metal Bilateral: Hip Procedures Procedure Name Priority Date/Time Associated Diagnosis Comments HEMOGLOBIN A1C Routine 01/21/2025 3:57 PM EDT Type 2 diabetes mellitus with microalbuminuria, without long-term current use of insulin MICROALBUMIN/CREATININ E RATIO, RANDOM URINE Routine 10/29/2024 8:14 AM EDT Type 2 diabetes mellitus with microalbuminuria, without long-term current use of insulin LIPID PANEL Routine 10/29/2024 8:09 AM EDT Type 2 diabetes mellitus with microalbuminuria, without long-term current use of insulin COMPREHENSIVE METABOLIC PANEL Routine 10/29/2024 8:09 AM EDT Thrombocytopenia LIVER FIBROSIS TEST Routine 10/10/2024 9 :35 AM EDT Hyperlipidemia LDL goal <70 JOHNSON (nonalcoholic steatohepatitis) Other vitamin B12 deficiency anemia Vitamin D deficiency ENDOSCOPY, COLON 04/24/2024 7:26 AM EDT DIABETES EYE EXAM FOR RESULT ENTRY ONLY Routine 01/30/2024 12:59 PM EDT from Last 3 Months or Most Recently Relevant to Health Maintenance Results * (ABNORMAL) Hemoglobin A1c (01/21/2025 3:57 PM EDT) HEMOGLOBIN A1C 6.8(H) 4.3 - 5.8 % [facility] Blood 01/21/2025 3:57 PM EDT 01/21/2025 4:02 PM EDT Stella Oneal MD LAB BLOOD ORDERABLES Final Result Performing Organization Address [facility] Co de Phone Number [address] [address] * Microalbumin/creatinine ratio, random urine (10/29/2024 8:14 AM EDT) Pathologist [facility] URINE MICROALBUMIN 1.6 0 - 2.3 mg/dL [facility] URINE CREATININE 122 mg/dL [facility] MICROALB/CRE RATIO 13.1 0 - 20 mg/g Cre [facility] Urine (Urine) 10/29/2024 8:1 4 AM EDT 10/29/2024 8:16 AM EDT Stella Oneal MD URINE ORDERABLES Final Resu lt Performing Organization Address [facility] Co de Phone Number [address] [address] * (ABNORMAL) Comprehensive metabolic panel (10/29/2024 8:09 AM EDT) SODIUM 138 133 - 146 mmol/L [facility] POTASSIUM 4.1 3.3 - 5.1 mmol/L [facility] Comment:Specimen slightly he molyzed, result may be falsely elevated. CHLORIDE 102 96 - 108 mmol/L [facility] CO2 27 21 - 35 mmol/L [facility] BUN 21(H) 6 - 19 mg/dL [facility] CREATININE 1.00 0.5 - 1.5 mg/dL [facility] GLUCOSE 132(H) 70 - 99 mg/dL [facility] ALBUMIN 4.3 3.9 - 4.8 g/dL [facility] TOTAL PROTEIN 8.1(H) 6.5 - 8.0 g/dL [facility] CALCIUM 9.6 8.4 - 10.3 mg/dL [facility] ALKALINE PHOSPHATASE 88 39 - 117 U/L [facility] TOTAL BILIRUBIN 0.8 0.0 - 1.2 mg/dL [facility] AST 41(H) 0 - 37 U/L [facility] ALT 32 0 - 40 U/L [facility] GLOBULIN 3.8 1 - 4.8 g/dL [facility] EGFR 81 >59 mL/min/1.7 3m2 [facility] Comment:Estimated glomerular filtration rate calculated using the CKD-EPI refit equation. ANION GAP 13 10 - 20 mmol/L [facility] Blood 10/29/2024 8:09 AM EDT 10/29/2024 8:14 AM EDT us Aliza DOW LAB BLOOD ORDERABLES Final R esult [facility] [address] [place] [address] * (ABNORMAL) Lipid panel (10/29/2024 8:09 AM EDT) HDL 67 mg/dL [facility] Comment: Interpretation <40 mg/dL: Low HDL cholesterol (major risk factor for CHD) Greater than or equal to 60 mg/dL: High HDL cholesterol ( negative risk factor for CHD) HDL - cholesterol is affected by a number of factors, e.g. smoking, excerise, hormones, sex and age. CHOLESTEROL 135 0 - 240 mg/dL [facility] TRIGLYCERIDES 43 30 - 160 mg/dL [facility] LDL 59 50 - 129 mg/dL [facility] Comment: LDL levels in terms of risk for coronary heart disease: <100 mg/dL: Optimal 100-129 mg/dL: Near or above optimal 130-159 mg/dL: Borderline high 160-189 mg/dL: High >190 mg/dL: Very High CARDIAC RISK RATIO 2.0(L) 3.4 - 5.0 [facility] Blood 10/29/2024 8:09 AM EDT 10/29/2024 8:15 AM EDT Stella Oneal MD LAB BLOOD ORDERABLES Final Result [address] [address] * (ABNORMAL) Liver fibrosis test (10/10/2024 9:35 AM EDT) Fibrosis score 0.70 [facility] Interpretation (Fibrosis) SEE NOTE [facility] Comment: (NOTE) advanced fibrosis Fibro Test Score (f) Metavir Score [...] : F4 (severe fibrosis) HCV Fibrosis Grade F3 Q [facility] NECROINFLAMM SCORE 0.27 Q [facility] NECROINFLAMM GRADE SEE NOTE Q [facility] Comment: (NOTE) Result: A0-A1 NECROINFLAMM INTERP SEE NOTE [facility] Comment: (NOTE) no activity ActiTest Score (a) Metavir Score a>=0 and a<=0.17 : A0 (no activity) a>0.17 and a<=0.29 : A0-A1 (no activity) a>0.29 and a<=0.36 : A1 (minimal activity) a>0.36 and a<=0.52 : A1-A2 (minimal activity) a>0.52 and a<=0.60 : A2 (significant activity) a>0.60 and a<=0.62 : A2-A3 (significant activity) a>0.62 and a<=1.00 : A3 (severe activity) A2 Macroglobulin 422(H) 106 - 279 mg/dL [facility] [employer] [facility] Haptoglobin 151 43 - 212 mg/dL [facility] Apolipoprotein A1 184(H) 94 - 176 mg/dL [facility] TOTAL BILIRUBIN 0.7 0.2 - 1.2 mg/dL [facility] GGT 73(H) 3 - 70 U/L [facility] ALT 33 9 - 46 U/L [facility] Specimen/Product ID [id number] [facility] Comments (Chemistry) SEE NOTE [facility] [employer] [facility] Comment: (NOTE) The reliability of results is dependent on compliance with the preanalytical and analytical conditions recommended by [employer]. The tests have to be deferred for: [...] The performance characteristics have been determined by [facility]. It has not been cleared or approved by the U.S. Food and Drug Administration. Performance characteristics refer to the analytical performance of the test. [employer], the associated logo, [employer] and all associated [employer] valle are the registered trademarks of [employer]. All third alliance party valle - (R) and (TM) - are the property of their respective owners. (C) [id number] [employer]. All rights reserved. Blood 10/10/2024 9:35 AM EDT 10/10/2024 10:00 AM EDT us Jessica LIZ LAB BLOOD ORDERABLES Final Result [facility] [address] [place] [address], [place] [phone] * ENDOSCOPY, COLON (04/24/2024 7:26 AM EDT) Narrative Transcriptions Terrence Nelson MD - 04/24/2024 7:26 AM EDT [facility] Patient Name: Carlos Hernandez Attending MD:: TERRENCE NELSON MD, Procedure Date: 04/24/2024 7:26 AM Date of : 1955 Age: 68 Admit Type: Outpatient Gender: Male Room: [place] [address] Referring MD: Stella Oneal Exam Type: Colonoscopy Indications: High risk colon cancer surveillance: Personalhistory of colonic polyps, Last colonoscopy: 2019 Medications: Monitored Anesthesia Care Procedure: Informed consent was obtained from the patientafter discussion of the indications, limitations, alternatives, benefits, and risks of the procedure. Risks specifically discussed include but are not limited to medication reactions, missed lesions, bleeding, perforation, or the need for emergent surgery. Throughout the procedure, the patient's blood pressure, pulse, end-tidal CO2, and oxygensaturations were monitored continuously. The Colonoscope was introduced through the anus and advanced to the cecum, identified by theappendiceal orifice. The colonoscopy was performed without difficulty. The patient tolerated the procedurewell. The quality of the bowel preparation was good. Anatomical landmarks were photographed. Complications: No immediate complications. Estimated blood loss:None. Findings: The perianal and digital rectal examinations were normal. Multiple small-mouthed diverticula were found inthe sigmoid colon. A 5 mm polyp was found in the ascending colon. The polyp was sessile. The polyp was removed with acold snare. Resection and retrieval were complete. The rectum, recto-sigmoid colon, sigmoid colon, descending colon, splenic flexure, transversecolon, hepatic flexure, cecum, appendiceal orifice,ileocecal valve, rectum (on retroflexion) and ascending colon (on retroflexion) appeared normal. Impression: - Diverticulosis in the sigmoid colon. - One 5 mm polyp in the ascending colon, removedwith a cold snare. Resected and retrieved. - The rectum (on retroflexion), ascending colon (on retroflexion), rectum, sigmoid colon, descending colon, splenic flexure, transverse colon, hepatic flexure, cecum, recto-sigmoid colon, ileocecalvalve and appendiceal orifice are normal. Recommendation: - Discharge patient to home. - Resume previous diet. - Continue present medications. - Await pathology results. - Repeat colonoscopy in 7 years for surveillance. - You have diverticulosis so please eat a highfiber diet. - I will send you pathology results by letter. Ifyou do not get results in 3 weeks telephone nubiaice. TERRENCE NELSON MD 04/24/2024 7:48:51 AM This report has been signed electronically. Number of Addenda: 0 Note Initiated On: 04/24/2024 7:26 AM Procedure Code(s): --- Professional --- 87837, Colonoscopy, flexible; with removal of tumor(s), polyp(s), or other lesion(s) by snare technique --- Technical --- 14066, Colonoscopy, flexible; with removal of tumor(s), polyp(s), or other lesion(s) by snare technique Diagnosis Code(s): --- Professional --- Z86.010, Personal history of colonic polyps D12.2, Benign neoplasm of ascending colon K57.30, Diverticulosis of large intestine without perforation or abscess without bleeding --- Technical --- Z86.010, Personal history of colonic polyps D12.2, Benign neoplasm of ascending colon K57.30, Diverticulosis of large intestine without perforation or abscess without bleeding CPT copyright 2021 [employer]. All rights reserved. The codes documented in this report are preliminary and upon hydro technician reviewmay be revised to meet current compliance requirements. Procedure Date: 04/24/2024 7:26:50 AM [address] [place] [address] Stella Oneal MD GI PROCEDURE ORDERABLES Fin al Result * DIABETES EYE EXAM FOR RESULT ENTRY ONLY (01/30/2024 12:59 PM EDT) Historical Provider HEALTH MAINTENANCE Edited Result - Final from Last 3 Months or Most Recently Relevant to Health Maintenance Additional Health Concerns Infection Onset Date Last Indicated MRSA 06/19/2024 06/19/2024 Insurance [facility] MEDEX SUPPLEMENT MEDICARE PART A & B [employer] MEDEX SUPPLEMENT MEDICARE PART A & B [employer] MEDEX SUPPLEMENT MEDICARE PART A & B MEDICARE PART A & B [employer] MEDEX SUPPLEMENT MEDICARE PART A & B MEDICARE PART A & B MEDICARE PART A & B [employer] MEDEX SUPPLEMENT MEDICARE PART A & [place] [id number] [facility] MEDEX SUPPLEMENT MEDICARE PART A & B Care Teams [employer] Relationship Specialty Start Date End Date Stella Oneal MD [address] [place] [address], [facility] [address] [place] [address] [email or web address] PCP - General Family Medicine 08/09/24 Stella Oneal MD [address] [place] [address], [address] [place] [address] [email or web address] Insurance Assigned Provider 11/04/24 Additional Source Comments The information contained in this document represents components of the legal health record. It is not the complete legal health record.[facility]
--- OUTSIDE RECORDS SUMMARY | 2025-04-03 16:10 | XMS_ITS | Encounter Summary ---
Author Organization [facility] Address [address] [place] [address] Phone Care Team Providers Care Collating Machine Operator Name Role Phone Osmin Marquez MD Primary Care Provider Osmin Marquez MD Unavailable Osmin Marquez MD Unavailable [phone] Stella Oneal MD Primary Care Provider Aliza Marin Primary Care Provider [phone] Stella Oneal MD Primary Care Provider Stella Oneal MD Unavailable Encounter Details Date Type Department Care Team (Late st Contact Info) Description 10/31/2018 Procedure Pass [facility] Endoscopy Admitting Dept Virtual Department [address] [place] [address] Social History Tobacco Use Types Packs/Day Years Used Date Smoking Tobacco: Never Smokeless Tobacco: Never Alcohol Use Standard Drinks/Week Comments Yes 0 (1 standard drink = 0.6 oz pur e alcohol) rare Sex and Gender Information Value Date Recorded Sex Assigned at Male 09/29/2018 11:28 AM EST Legal Sex Male 9:55 PM EDT Gender Identity Male 09/29/2018 11:28 AM EST Sexual Orientation Straight 09/29/2018 11 :28 AM EST documented as of this encounter Plan of Treatment Upcoming Encounters Date Type Department Care Team (Late st Contact Info) Description 05/02/2025 8:00 AM EDT Office Visit [facility] Medicine [address] [place] [address] Stella Oneal MD 234 [facility] 7 [place] [address] [email or web address] 05/09/2025 9:00 AM EDT Office Visit [facility] 30 [place] [address] Aliza Marin MBBS 30 [place] [address] 06/03/2025 8:30 AM EST Office Visit [facility] [address] [place] [address] 3rd Floor, [address] [place] [address] Valerie Ramos, TAMAR [address] [place] [address] documented as of this encounter Visit Diagnoses Not on filedocumented in this encounter Additional Health Concerns Infection Onset Date Last Indicated Resolved Time MRSA 06/19/2024 06/19/2024 documented as of this encounter Care Teams Collating Machine Operator Relationship Specialty Start Date End Date Osmin Marquez MD [address] [place] [address] 7 [place] [address] PCP - General 05/19/17 06/01/23 Stella Oneal MD [address] [place] [address] [email or web address] PCP - General Family Medicine 06/02/23 07/02/24 Aliza Marin MBBS [address] [place] [address] [email or web address] PCP - General Medical Oncology 07/03/24 08/08/24 Stella Oneal MD [address] [place] [address], [facility] [address] [place] [phone] [email or web address] PCP - General Family Medicine 08/09/24 Osmin Marquez MD [address] [place] [address], [facility] [address] [place] [phone] [email or web address] Insurance Assigned Provider 12/02/18 01/04/21 Osmin Marquez MD [address] [place] [address] [address] [phone] [email or web address] Insurance Assigned Provider 11/07/21 08/06/23 Stella Oneal MD [address] [place] [address] [address] [place] [id number] [email or web address] Insurance Assigned Provider 11/04/24 documented as of this encounter Additional Source Comments The information contained in this document represents components of the legal health record. It is not the complete legal health record.[facility]
--- OUTSIDE RECORDS SUMMARY | 2025-04-03 16:10 | XMS_ITS | Encounter Summary ---
Author Organization [facility] Address [address] [place] [address] Phone Care Team Providers Care Installer Apprentice Name Role Phone Osmin Marquez MD Primary Care Provider Osmin Marquez MD Unavailable Osmin Marquez MD Unavailable Stella Oneal MD Primary Care Provider Aliza Marin Primary Care Provider Stella Oneal MD Primary Care Provider Stella Oneal MD Unavailable Encounter Details Date Type Department Care Team (Latest Contact Info) Description 09/20/2019 Transcribe Orders [facility] Laboratory 30 [place] [address] Mark Jaramillo DO 22 [place] [address] Screening for condition (Primary Dx) Social History Tobacco Use Types Packs/Day Years [...] Description 05/02/2025 8:00 AM EDT Office Visit [facility] 234 [place] [address] Stella Oneal MD 234 [facility], [address] [place] [address] [email or web address] 05/09/2025 9:00 AM EDT Office Visit [facility] 30 [place] [address] Aliza Marin MBBS 30 [place] [address] 06/03/2025 8:30 AM EST Office Visit [facility] [address] [place] [address] 3rd Floor, [address] [place] [address] Valerie Ramos, TAMAR 22 [facility], [address] [address] documented as of this encounter Results * Microalbumin/creatinine ratio, random urine (01/25/2020 8:32 AM EDT) URINE MICROALBUMIN 1.6 0 - 2.3 mg/dL [facility] URINE CREATININE 201 mg/dL [facility] MICROALB/CRE RATIO 8.0 0 - 20 mg/g Cre [facility] Urine (Urine) 01/25/2020 8:3 2 AM EDT 01/25/2020 8:36 AM EDT Mark Jaramillo DO URINE ORDERABLES Final Result [address] [address] * (ABNORMAL) Hemoglobin A1c (01/25/2020 8:17 AM EDT) HEMOGLOBIN A1C 6.4(H) 4.3 - 5.8 % [facility] Blood 01/25/2020 8:17 AM EDT 01/25/2020 8:19 AM EDT Mark Jaramillo DO LAB BLOOD ORDERABLES Final Resul t [address] [address] documented in this encounter Visit Diagnoses Diagnosis Screening for condition- Primary Screening for unspecified condition documented in this encounter Additional Health Concerns Infection Onset Date Last Indicated Resolved Time MRSA 06/19/2024 06/19/2024 Assessment Noted Time PHQ-2 Depression Total Score: 0 01/12/20 19 10:33 AM EDT documented as of this encounter Care Teams Installer Apprentice Relationship Specialty Start Date End Date Osmin Marquez MD [address] [place] [address] 7 [place] [address] [email or web address] PCP - General 05/19/17 06/01/23 Stella Oneal MD [address] [place] [address] 7 [place] [address] [email or web address] PCP - General Family Medicine 06/02/23 07/02/24 Aliza Marin MBBS [address] [place] [address] [email or web address] PCP - General Medical Oncology 07/03/24 08/08/24 Stella Oneal MD [address] [place] [address] [address] [place] [phone] [email or web address] PCP - General Family Medicine 08/09/24 Osmin Marquez MD [address] [place] [address], [address] [place] [address] [email or web address] Insurance Assigned Provider 12/02/18 01/04/21 Osmin Marquez MD [address] [place] [address], [address] [place] [address] [email or web address] Insurance Assigned Provider 11/07/21 08/06/23 Stella Oneal MD [address] [place] [address], [address] [place] [phone] [email or web address] Insurance Assigned Provider 11/04/24 documented as of this encounter Additional Source Comments The information contained in this document represents components of the legal health record. It is not the complete legal health record.[facility]
--- OUTSIDE RECORDS SUMMARY | 2025-04-03 16:10 | XMS_ITS | Encounter Summary ---
Author Organization [facility] Address [address] [place] [address] Phone Care Team Providers Care Tapper Operator Name Role Phone Osmin Marquez MD Primary Care Provider Osmin Marquez MD Unavailable [phone] Osmin Marquez MD Unavailable [phone] Stella Oneal MD Primary Care Provider Aliza Marin Primary Care Provider [phone] Stella Oneal MD Primary Care Provider [phone] Stella Oneal MD Unavailable [phone] Reason for Referral * Physical Therapy (Elective) - Closed Specialty Diagnoses / Procedures Referred By Nadege justice Referred To Contact Physical Therapy Diagnoses Encounter for rehabilitation Back Pain Procedures Evaluate & Treat System, Provider Not In, PhD Partners [address] [place] [address] Phone: tel: Referral ID Status Reason Start Date Expiration Date Visits Re quested Visits Authorized [id number] Closed 01/12/2018 07/31/2018 50 50 Encounter Details Date Type Department Care Team (Latest Contact Info) Description 01/09/2018 Transcribe Orders [facility] [address] [place] [address] [id number] Anton Germain PA [address] [place] [address] Encounter for rehabilitation (Primary Dx) Social History Tobacco Use Types Packs/Day Years Used Date Smoking Tobacco: Never Smokeless Tobacco: Never Sex and Gender Information Value Date Recorded Sex Assigned at Male 09/29/2018 11:28 AM EST Legal Sex Male 9:55 PM EDT Gender Identity Male 09/29/2018 11:28 AM EST Sexual Orientation Straight 09/29/2018 11 :28 AM EST documented as of this encounter Plan of Treatment Upcoming Encounters Date Type Department Care Team (Late st Contact Info) Description 05/02/2025 8:00 AM EDT Office Visit [facility] 234 [place] [address] Stella Oneal MD 234 [facility], [address] [place] [address] [email or web address] 05/09/2025 9:00 AM EDT Office [facility] 30 [place] [address] Aliza Marin MBBS 30 [place] [address] 06/03/2025 8:30 AM EST Office Visit [facility] [address] [place] [address] 3rd Floor, [address] [place] [address] Valerie Ramos, TAMAR [address] [id number] documented as of this encounter Procedures Procedure Name Priority Date/Time Associated Diagnosis Comments AMB REFERRAL TO [facility] PHYSICAL THERAPY Routine 01/13/2018 9:39 PM EDT Encounter for rehabilitation documented in this encounter Results * Ambulatory referral to [facility] Physical Therapy (01/13/2018 9:39 PM EDT) us Provider Not In System PhD AMB [facility] REFERRALS Fin al Result documented in this encounter Visit Diagnoses Diagnosis Encounter for rehabilitation- Primary documented in this encounter Additional Health Concerns Infection Onset Date Last Indicated Resolved Time MRSA 06/19/2024 06/19/2024 documented as of this encounter Care Teams Tapper Operator Relationship Specialty Start Date End Date Osmin Marquez MD [address] [place] [address], [facility] [address] [id number] [email or web address] PCP - General 05/19/17 06/01/23 Stella Oneal MD [address] [place] [address] [address] [place] [id number] [email or web address] PCP - General Family Medicine 06/02/23 07/02/24 Aliza Marin MBBS [address] [place] [address] [email or web address] PCP - General Medical Oncology 07/03/24 08/08/24 Stella Oneal MD [address] [place] [address] [address] [id number] [email or web address] PCP - General Family Medicine 08/09/24 Osmin Marquez MD [address] [place] [address] [address] [place] [address] [email or web address] Insurance Assigned Provider 12/02/18 01/04/21 Osmin Marquez MD [address] [place] [address] [address] [place] [phone] [email or web address] Insurance Assigned Provider 11/07/21 08/06/23 Stella Oneal MD [address] [place] [address] 7 [place] [address] [email or web address] Insurance Assigned Provider 11/04/24 documented as of this encounter Additional Source Comments The information contained in this document represents components of the legal health record. It is not the complete legal health record.[facility]
--- OUTSIDE RECORDS SUMMARY | 2025-04-03 16:10 | XMS_ITS | Encounter Summary ---
Author Organization [facility] Address [address] [place] [address] Phone Care Team Providers Care Campus Director Name Role Phone Stella Oneal MD Primary Care Provider Stella Oneal MD Unavailable [phone] Encounter Details Date Type Department Care Team (Latest Contact Info) Description 10/10/2024 Transcribe Orders [facility] [address] [address] Jessica Diaz PA 10 [place] [address] Hyperlipidemia LDL goal <70 (Primary Dx); JOHNSON (nonalcoholic steatohepatitis); Other vitamin B12 deficiency anemia; Vitamin D deficiency Social History Tobacco Use Types Packs/Day Years [...] Description 05/02/2025 8:00 AM EDT Office Visit [facility] 234 [place] [address] Stella Oneal MD 234 [facility] 7 [place] [address] [email or web address] 05/09/2025 9:00 AM EDT Office Visit [facility] 30 [place] [address] Aliza Marin MBBS 30 [place] [address] 06/03/2025 8:30 AM EST Office Visit [facility] [address] [place] [address] 3rd Floor, [address] [place] [address] Valerie Ramos DNP [address] [place] [address] documented as of this encounter Results * (ABNORMAL) 25-OH vitamin D (10/10/2024 9:35 AM EDT) 25 [place] VIT D (TOTAL) 18(L) 30 - 60 ng/mL [facility] Blood 10/10/2024 9:35 AM EDT 10/10/2024 9:59 AM EDT Jessica LIZ LAB BLOOD ORDERABLES Final Result Performing Organization Address [facility]/ZIP Co de Phone Number [address] [address] * Vitamin B12 (10/10/2024 9:35 AM EDT) Pathologist [facility] VITAMIN B12 1,140 232 - 1,245 pg/mL [facility] Blood 10/10/2024 9:35 AM EDT 10/10/2024 9:59 AM EDT Jessica LIZ LAB BLOOD ORDERABLES Final Result Performing Organization Address [facility] Co de Phone Number [address] [address] * PT-INR (10/10/2024 9:35 AM EDT) Pathologist [facility] PT 12.1 10.2 - 12.9 sec [facility] INR 1.1 0.9 - 1.1 [facility] Comment:Therapeutic range fo r oral Vitamin K antagonists: 2.0-3.5 Blood 10/10/2024 9:35 AM EDT 10/10/2024 9:59 AM EDT Jessica LIZ LAB BLOOD ORDERABLES Final Result Performing Organization Address [facility] Co de Phone Number [address] [address] * (ABNORMAL) Lipid panel (10/10/2024 9:35 AM EDT) [facility] HDL 64 mg/dL [facility] Comment: Interpretation <40 mg/dL: Low HDL cholesterol (major risk factor for CHD) Greater than or equal to 60 mg/dL: High HDL cholesterol ( negative risk factor for CHD) HDL - cholesterol is affected by a number of factors, e.g. smoking, excerise, hormones, sex and age. CHOLESTEROL 134 0 - 240 mg/dL [facility] TRIGLYCERIDES 53 30 - 160 mg/dL [facility] LDL 59 50 - 129 mg/dL [facility] Comment: LDL levels in terms of risk for coronary heart disease: <100 mg/dL: Optimal 100-129 mg/dL: Near or above optimal 130-159 mg/dL: Borderline high 160-189 mg/dL: High >190 mg/dL: Very High CARDIAC RISK RATIO 2.1(L) 3.4 - 5.0 [facility] Blood 10/10/2024 9:35 AM EDT 10/10/2024 10:00 AM EDT us Jessica LIZ LAB BLOOD ORDERABLES Final Result Performing Organization Address City/State/[facility] Co de Phone Number [facility] 30 [place] [address] * (ABNORMAL) Comprehensive metabolic panel (10/10/2024 9:35 AM EDT) SODIUM 139 133 - 146 mmol/L [facility] POTASSIUM 4.4 3.3 - 5.1 mmol/L [facility] CHLORIDE 104 96 - 108 mmol/L [facility] CO2 26 21 - 35 mmol/L [facility] BUN 17 6 - 19 mg/dL [facility] CREATININE 0.90 0.5 - 1.5 mg/dL [facility] GLUCOSE 134(H) 70 - 99 mg/dL [facility] ALBUMIN 4.1 3.9 - 4.8 g/dL [facility] TOTAL PROTEIN 7.8 6.5 - 8.0 g/dL [facility] CALCIUM 9.6 8.4 - 10.3 mg/dL [facility] ALKALINE PHOSPHATASE 94 39 - 117 U/L [facility] TOTAL BILIRUBIN 0.6 0.0 - 1.2 mg/dL [facility] AST 50(H) 0 - 37 U/L [facility] ALT 40 0 - 40 U/L [facility] GLOBULIN 3.7 1 - 4.8 g/dL [facility] EGFR 92 >59 mL/min/1.7 3m2 [facility] Comment:Estimated glomerular filtration rate calculated using the CKD-EPI refit equation. ANION GAP 13 10 - 20 mmol/L [facility] Blood 10/10/2024 9:35 AM EDT 10/10/2024 9:59 AM EDT us Jessica LIZ LAB BLOOD ORDERABLES Final Result [facility] [address] [place], [place] [id number] * (ABNORMAL) CBC and differential (10/10/2024 9:35 AM EDT) WBC 4.34 4.00 - 11.00 K/uL [facility] RBC 4.25(L) 4.50 - 5.90 M/uL [facility] HGB 12.4(L) 13.5 - 17.5 g/dL [facility] HCT 37.9(L) 41.0 - 53.0 % [facility] PLT 82(L) 150 - 450 K/uL [facility] Comment:Microscopic estimate : Platelets decreased. MCV 89.2 80.0 - 100.0 fL [facility] MCH 29.2 27.0 - 31.0 pg [facility] MCHC 32.7 32.0 - 36.0 g/dL [facility] RDW 13.6 11.5 - 14.5 % [facility] MPV 11.6 8.4 - 12.0 fL [facility] NRBC 0.00 0.00 /100 WBCs [facility] ABSOLUTE NRBC 0.00 0.00 K/uL [facility] DIFF METHOD Auto [facility] NEUTS 63.0 48.0 - 76.0 % [facility] LYMPHS 18.9 18.0 - 41.0 % [facility] MONOS 9.2 4.0 - 11.0 % [facility] EOS 7.8(H) 0.0 - 5.0 % [facility] BASOS 0.9 0.0 - 1.5 % [facility] Granulocytes, immature (%) 0.2 0.0 - 0.9 % [facility] ABSOLUTE NEUTS 2.73 1.92 - 7.60 K/uL [facility] ABSOLUTE LYMPHS 0.82 0.72 - 4.10 K/uL [facility] ABSOLUTE MONOS 0.40 0.16 - 1.10 K/uL [facility] ABSOLUTE EOS 0.34 0.00 - 0.50 K/uL [facility] ABSOLUTE BASOS 0.04 0.00 - 0.15 K/uL [facility] Granulocytes, immature 0.01 0.00 - 0.09 K/uL [facility] Blood 10/10/2024 9:35 AM EDT 10/10/2024 9:59 AM EDT us Jessica LIZ LAB BLOOD ORDERABLES Final Result Performing Organization Address City/State/[facility] Co de Phone Number [address] [address] * (ABNORMAL) Liver fibrosis test (10/10/2024 9:35 AM EDT) Fibrosis score 0.70 [facility] Interpretation (Fibrosis) SEE NOTE [facility] Comment: (NOTE) advanced fibrosis Fibro Test Score [...] HCV Fibrosis Grade F3 Q [facility] NECROINFLAMM SCORE 0.27 Q [facility] NECROINFLAMM GRADE SEE NOTE Q [facility] Comment: (NOTE) Result: A0-A1 NECROINFLAMM INTERP SEE NOTE [facility] [employer] Comment: (NOTE) no activity ActiTest Score (a) [...] A2 Macroglobulin 422(H) 106 - 279 mg/dL [facility] [employer] Haptoglobin 151 43 - 212 mg/dL [facility] [employer] Apolipoprotein A1 184(H) 94 - 176 mg/dL [facility] TOTAL BILIRUBIN 0.7 0.2 - 1.2 mg/dL [facility] GGT 73(H) 3 - 70 U/L [facility] [employer] ALT 33 9 - 46 U/L [facility] Specimen/Product ID [id number] [facility] Comments (Chemistry) SEE NOTE [facility] [employer]/ [facility] Comment: (NOTE) The reliability of results is dependent on compliance with the preanalytical and analytical conditions recommended by [employer]. The tests have to be deferred for: [...] The performance characteristics have been determined by [employer] [facility]. It has not been cleared or approved by the U.S. Food and Drug Administration. Performance characteristics refer to the analytical performance of the test. [employer], the associated logo, [employer] and all associated [employer] valle are the registered trademarks of [employer]. All third democrat valle - (R) and (TM) - are the property of their respective owners. (C) 0432-8250 [employer]. All rights reserved. Blood 10/10/2024 9:35 AM EDT 10/10/2024 10:00 AM EDT Jessica LIZ LAB BLOOD ORDERABLES Final Result [employer] [facility] [address] [place] [address], [facility] [phone] documented in this encounter Visit Diagnoses Diagnosis Hyperlipidemia LDL goal <70- Primary Other and unspecified hyperlipidemia JOHNSON (nonalcoholic steatohepatitis) Other chronic nonalcoholic liver disease Other vitamin B12 deficiency anemia Vitamin D deficiency documented in this encounter Additional Health Concerns Infection Onset Date Last Indicated Resolved Time MRSA 06/19/2024 06/19/2024 Assessment Noted Time PHQ-2 Depression Total Score: 0 07/13/20 23 10:16 PM EST documented as of this encounter Care Teams Campus Director Relationship Specialty Start Date End Date Stella Oneal MD [address] [place] [address] 7 [place] [address] [email or web address] PCP - General Family Medicine 08/09/24 Stella Oneal MD [address] [place] [address] [address] [place] [address] [email or web address] Insurance Assigned Provider 11/04/24 documented as of this encounter Additional Source Comments The information contained in this document represents components of the legal health record. It is not the complete legal health record.[facility]
--- OUTSIDE RECORDS SUMMARY | 2025-04-03 16:10 | XMS_ITS | Encounter Summary ---
Author Organization [facility] Address [address] [place] [address] Phone Care Team Providers Care Social Worker Delinquency Prevention Name Role Phone Osmin Marquez MD Primary Care Provider [phone] Osmin Marquez MD Unavailable Osmin Marquez MD Unavailable [phone] Stella Oneal MD Primary Care Provider Aliza Marin Primary Care Provider Stella Oneal MD Primary Care Provider Stella Oneal MD Unavailable Reason for Referral * Physical Therapy (Routine) - Closed Specialty Diagnoses / Procedures Referred By Nadege justice Referred To Contact Physical Therapy Diagnoses Encounter for rehabilitation Lumbar Radiculopathy Procedures Evaluate & Treat System, Provider Not In, PhD [id number] [place] [address] Phone: tel: Referral ID Status Reason Start Date Expiration Date Visits Re quested Visits Authorized [id number] Closed 08/14/2018 01/28/2019 30 30 Encounter Details Date Type Department Care Team (Latest Contact Info) Description 08/14/2018 Transcribe Orders [facility] [address] [place] [address] Michael Croft MD [address] [place] [phone] Encounter for rehabilitation (Primary Dx) Social History [...] Description 05/02/2025 8:00 AM EDT Office Visit [address] [address] Stella Oneal MD [address] [facility] [address] [place] [address] [email or web address] 05/09/2025 9:00 AM EDT Office Visit [facility] [address] [place] [address] Aliza Marin MBBS [address] [place] [address] 06/03/2025 8:30 AM EST Office Visit [facility] [address] [place] [address] [address]rd Floor, [address] [place] [address] Valerie Ramos, TAMAR [address] [place] [address], [address] [place] [phone] documented as of this encounter Procedures Procedure Name Priority Date/Time Associated Diagnosis Comments AMB REFERRAL TO [facility] PHYSICAL THERAPY Routine 08/14/2018 10:21 PM EST Encounter for rehabilitation documented in this encounter Results * Ambulatory referral to [facility] Physical Therapy (08/14/2018 10:21 PM EST) us Provider Not In System PhD AMB [facility] REFERRALS Fin al Result documented in this encounter Visit Diagnoses Diagnosis Encounter for rehabilitation- Primary documented in this encounter Additional Health Concerns Infection Onset Date Last Indicated Resolved Time MRSA 06/19/2024 06/19/2024 documented as of this encounter Care Teams Social Worker Delinquency Prevention Relationship Specialty Start Date End Date Osmin Marquez MD [address] [place] [address] [address] [place] [address] [id number] [email or web address] PCP - General 05/19/17 06/01/23 Stella Oneal MD [address] [place] [address] [address] [id number] [email or web address] PCP - General Family Medicine 06/02/23 07/02/24 Aliza Marin MBBS [address] [place] [phone] [email or web address] PCP - General Medical Oncology 07/03/24 08/08/24 Stella Oneal MD [address] [place] [address] [address] [id number] [email or web address] PCP - General Family Medicine 08/09/24 Osmin Marquez MD [address] [place] [address] [address] [phone] [email or web address] Insurance Assigned Provider 12/02/18 01/04/21 Osmin Marquez MD [address] [place] [address] [address] [place] [address] [id number] Insurance Assigned Provider 11/07/21 08/06/23 Stella Oneal MD [address] [place] [address] 7 [place] [address] [email or web address] Insurance Assigned Provider 11/04/24 documented as of this encounter Additional Source Comments The information contained in this document represents components of the legal health record. It is not the complete legal health record.[facility]
== END 2025-04-03 13:58 | disposition home or self-care (01) ==
LOC: HO.HMGAL 13:57
PROVIDERS: PCP Family Medicine; Visit Provider Registered Nurse Emergency
DX: J30.89 Other allergic rhinitis (principal)
CPT/HCPCS: 95117; 95165

== ENCOUNTER 2025-05-20 10:45 | Outpatient (AMB) | payer MEDICARE, SELFPAY | END 2025-05-20 10:45 | disposition home or self-care (01) | LOC: HO.HMGAL 10:45 | PROVIDERS: PCP Family Medicine Sports Medicine; Visit Provider Registered Nurse Emergency | DX: J30.89 Other allergic rhinitis (principal) | CPT/HCPCS: 95117; 95165 ==

== ENCOUNTER 2025-07-10 11:11 | Outpatient (AMB) | payer MEDICARE, SELFPAY ==
--- OUTSIDE RECORDS SUMMARY | 2025-07-10 18:00 | XMS_ITS | Encounter Summary ---
Author Organization [facility] Address [address] [place] [phone] Phone Care Team Providers Care Smoke Chaser Name Role Phone Osmin Marquez MD Primary Care Provider Osmin Marquez MD Unavailable Osmin Marquez MD Unavailable Stella Oneal MD Primary Care Provider Aliza Marin Primary Care Provider [phone] Stella Oneal MD Primary Care Provider Stella Oneal MD Unavailable Aliza Marin Unavailable [phone] Encounter Details Date Type Department Care Team (Late st Contact Info) Description 10/31/2018 Procedure Pass [facility] Endoscopy Admitting Dept Virtual Department [address] [place] [address] Social History Tobacco Use Types Packs/Day Years [...] Care Team (Late st Contact Info) Description 07/15/2025 8:00 AM EST Office Visit [facility] Rheumatology [address] [place] [address] Ping Gandara, [address] [facility], [address] [place] [address] [email or web address] 08/12/2025 8:00 AM EST Office Visit [facility] [address] [place] [address] Stella Oneal MD 234 [facility] [address] [place] [address] [email or web address] 09/02/2025 10:00 AM EST Office Visit [facility] [address] [place] [address] Jessica Diaz PA-C [address] [address] 11/07/2025 9:20 AM EDT Office Visit 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 documented as of this encounter Care Teams Smoke Chaser Relationship Specialty Start Date End Date Osmin Marquez MD [address] [place] [address] [address] [place] [address] [phone] [email or web address] PCP - General 05/19/17 06/01/23 Stella Oneal MD [address] [place] [address] [address] [place] [id number] [email or web address] PCP - General Family Medicine 06/02/23 07/02/24 Aliza Marin MBBS [address] [place] [id number] [email or web address] PCP - General Medical Oncology 07/03/24 08/08/24 Stella Oneal MD [address] [place] [address] [place] [id number] [email or web address] PCP - General Family Medicine 08/09/24 Osmin Marquez MD [address] [place] [place] [address] [place] [phone] [email or web address] Insurance Assigned Provider 12/02/18 01/04/21 Osmin Marquez MD [address] [place] [address] [address] [place] [phone] [email or web address] Insurance Assigned Provider 11/07/21 08/06/23 Stella Oneal MD [address] [place] [address] [address] [place] [address] [email or web address] Insurance Assigned Provider 11/04/24 Aliza Marin MBBS [address] [place] [id number] [email or web address] Primary Oncologist Medical Oncology 05/03/25 documented as of this encounter Additional Source Comments The information contained in this document represents components of the legal health record. It is not the complete legal health record.[facility]
--- OUTSIDE RECORDS SUMMARY | 2025-07-10 18:00 | XMS_ITS | Clinical Summary ---
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 Active blood sugar diagnostic (ONETOUCH ULTRA TEST) Strp stripsIndications :Type 2 diabetes mellitus with microalbuminuria, without long-term current use of insulin Test bid Dx type 2 diabetes 120 strip 3 1 Active lancets 30 gauge MiscIndications:T ype 2 diabetes mellitus with microalbuminuria, without long-term current use of insulin Inject 1 each under the skin 2 (two) times a day. 200 each 1 1 Active nitroglycerin (NITROSTAT) 0.[address] 1 tablet (0.4 mg total) under the tongue every 5 (five) minutes as needed for chest pain. 30 tablet 5 2 Active amLODIPine (NORVASC) 5 MG tabletIndications :Ischemic heart disease Take 1 tablet (5 mg total) by mouth daily. 90 tablet 3 3 Active albuterol 90 mcg/actuation inhalerIndication s:Acute cough Inhale 2 puffs into the lungs every 6 (six) hours as needed for wheezing. 18 g 1 4 Active HENRRY CAPUTO [facility] Spcr USE DIRECTED WITH INHALER 4 Active MAGNESIUM ORAL Take 1 tablet by mouth daily. Active ascorbic acid (VITAMIN C ORAL) Take 1 tablet by mouth daily. Active omeprazole (PRILOSEC) 20 MG capsule Take 20 mg by mouth 3 (three) times a week. T-Th-Sat Active cyanocobalamin, vitamin B-12, 1000 MCG tabletIndications :Other vitamin B12 deficiency anemia Take 1 tablet on alternate days 90 tablet 3 4 Active rosuvastatin (CRESTOR) 10 MG tabletIndications :Hyperlipidemia LDL goal <70 TAKE 1 TABLET DAILY 90 tablet 3 5 Active lisinopril (PRINIVIL,ZESTRIL ) 2.5 MG tabletIndications :Essential hypertension Take 1 tablet (2.5 mg total) by mouth daily. 90 tablet 3 5 Active metoprolol succinate (TOPROL-XL) 50 MG 24 hr tabletIndications :Essential hypertension Take 1 tablet (50 mg total) by mouth daily. 90 tablet 3 5 Active dulaglutide (TRULICITY) 1.5 mg/0.5 mL subcutaneous injectionIndicati ons:Type 2 diabetes mellitus with microalbuminuria, without long-term current use of insulin Inject 0.5 mL (1.5 mg total) under the skin every 7 days. 6 mL 3 5 Active metFORMIN (GLUCOPHAGE) 1000 MG immediate release tabletIndications :Type 2 diabetes mellitus with microalbuminuria, without long-term current use of insulin Take 1 tablet (1,000 mg total) by mouth 2 (two) times a day with meals. 180 tablet 3 5 Active Active Problems Problem Noted Date Diagnosed Date Pain of right foot 05/02/2025 Assessment & Plan (05/06/2025 12:23 PM EDT): -- X-ray reported degenerative changes and patient plans to follow-up with his primary care provider for the recommended orthopedic referral and possible injection. Assessment & Plan (05/02/2025 8:33 AM EDT): Pain and mild swelling on the top of the right foot without known injury. Differential includes stress fracture or other structural issues. - Order x-ray of right foot. - Uric acid level ordered - Advise use of ice to reduce swelling. - Recommend acetaminophen for pain management. Positive LOBO (antinuclear antibody) 07/11/2024 Assessment & Plan (05/06/2025 12:23 PM EDT): -- Discussion/patient education. A positive LOBO is a nonspecific finding. A positive LOBO in isolation is not diagnostic of any particular autoimmune disease. Some LOBO may be present in very high titer and yet not indicate that an autoimmune disease is present. A low positive LOBO may be present in preclinical autoimmune disease and in normal individuals. -- Further rheumatologic markers ordered including recheck LOBO itself. -- Discussion/patient education. On exam no particular findings of underlying rheumatologic or connective tissue disease related to LOBO. No current indication from rheumatologic perspective for immunosuppressive drugs. Record request placed, for the last [address] Agusto Limon, of [facility]. Assessment & Plan (05/02/2025 8:35 AM EDT): Generalized joint pain with suspicion of rheumatologic etiology. Negative Lyme disease test. Rheumatology appointment scheduled for further evaluation, including potential autoimmune conditions. - Attend rheumatology appointment for further evaluation. Assessment & Plan (01/21/2025 3:51 PM EDT): Followed by rheumatology. Assessment & Plan (10/22/2024 10:56 AM EDT): Followed by rheumatology. Assessment & Plan (08/09/2024 9:24 AM EST): W/ splenomegaly, elev LOBO. Likely rheum issue, reviewed chart w pt today. Has rheum appt forthcoming (outside, [facility] no booking til November) Splenomegaly 07/11/2024 Normocytic anemia 07/11/2024 Assessment & Plan (05/02/2025 8:33 AM EDT): Followed by hematology with upcoming evaluation. Assessment & Plan (01/21/2025 3:51 PM EDT): [...] of JOHNSON. He has not seen a lubricating engineer. Ultrasound 05/11/2024 revealed *Increased hepatic echogenicity, most [...] of JOHNSON. He has not seen a lubricating engineer. Ultrasound earlier this year was limited with [...] persist, a magnesium supplement may be considered. Floweree with quinine may also help. Will check [...] rich plaqu e 10/26/2022 Assessment & Plan (06/03/2025 8:34 AM EST): Continues to be asymptomatic we will continue to optimize cardiac risk factors. He will remain on aspirin 81 mg daily lifelong, atorvastatin amlodipine 5 mg daily, lisinopril 2.5 mg daily, metoprolol 50 mg daily, rosuvastatin 10 mg daily. LDL goal less than 50 mg/dL. LDL goal is to be goal less than 130/80. Assessment & Plan (01/21/2025 3:52 PM EDT): [...] use of insulin 06/24/2017 Assessment & Plan (06/03/2025 8:34 AM EST): Reports last hemoglobin A1c was 6.7 or 6.8. PCP is monitoring Assessment & Plan (05/02/2025 8:35 AM EDT): Last A1c at goal, maintained on Trulicity 1.5mg weekly as well as metformin 1000mg BID. Follows with ophthalmology with upcoming appointment. Maintained on rosuvastatin 10mg daily with last LDL-C at goal. - Repeat A1c today - Continue antihyperglycemic medications as previously prescribed pending repeat A1c Assessment & Plan (01/21/2025 3:53 PM EDT): [...] use of Actos which is an insulin spare hand carding and all these medications have cardiovascular benefits. [...] very good left ventricular function based on whipped topping finisher notes so it can be used. He [...] jim dobbins patient 06/24/2017 Assessment & Plan (05/02/2025 8:34 AM EDT): Erectile dysfunction worsening over time. Previous trial of oral medications like sildenafil was not well tolerated due to cardiovascular side effects. Discussion of potential urologist referral for alternative treatments. - Refer to urologist for evaluation and discussion of non-PDE5i treatment options. Assessment & Plan (10/10/2020 8:38 AM EST): [...] Ischemic heart disease 06/20/2017 Assessment & Plan (05/02/2025 8:35 AM EDT): Asymptomatic. Maintained on ASA 81mg daily with rosuvastatin 10mg with last LDL- C at goal. Continue current regimen. Assessment & Plan (10/22/2024 10:56 AM EDT): [...] in his circumflex stenosis of 60% appears [id number]. this is a low risk stress test. [...] in his circumflex stenosis of 60% appears kee-dlqc-waopucqy. I reassured him that this is a [...] atorvastatin. Essential hypertension 06/20/2017 Assessment & Plan (06/03/2025 8:33 AM EST): His initial blood pressure reading was 160/80 I did recheck him after sitting for some time at 140/90. He does not check his blood pressures at home. He was strongly encouraged to do so if his blood pressures continue to be greater than 140/80 with him to let me know we will increase lisinopril to 5 mg daily. He should follow the diet: Sodium exercise. Assessment & Plan (05/02/2025 8:35 AM EDT): BP at goal today, continue lisinopril 2.5mg daily, metoprolol succinate 50mg daily, amlodipine 5mg daily. Assessment & Plan (01/21/2025 3:52 PM EDT): [...] does not improve or if this gets oezzs-yokzvv-qy in a week. He understands and agrees. [...] if there are any other issues or wsrcmfcd-[id number]-gq in a week. He understands and agrees. [...] Encounters Date Type Department Care Team Description 06/06/2025 Telephone [facility] TEAM [address] [place] [address] Stella Oneal MD Care Coordination ([facility] Virtual AWV Outreach/) 06/04/2025 Refill [facility] [address] [place] [address] Stella Oneal MD Medication Problem (Pt is calling for someone to call him back regarding all his medications being sent to [facility] for delivery. Please give pt a call to confirm this is being done, moving forward. Pt has requested this to be done several times. Please contact and advise. Best call back number [phone] /) 06/03/2025 8:30 AM EST Office Visit [facility] [address], [address] [place] [address] Valerie Ramos DNP Hyperlipidemia LDL goal <70 (Primary Dx); Essential hypertension; Coronary atherosclerosis due to lipid rich plaque; Type 2 diabetes mellitus with microalbuminuria, without long-term current use of insulin 05/20/2025 Refill [facility] [address] [place] [address] Jenny Feliz MA 05/20/2025 Orders Only [facility] [address] [place] [address] Jenny Feliz MA Type 2 diabetes mellitus with microalbuminuria, without long-term current use of insulin 05/17/2025 Telephone [facility] [address] [place] [address] Stella Oneal MD Care Coordination ([facility] Virtual AWV Outreach/) 05/09/2025 9:00 AM EDT Office Visit [facility] [address] [place] [address] Aliza Marin MBBS Thrombocytopenia (Primary Dx); Hepatic steatosis; Splenomegaly 05/06/2025 12:09 PM EDT - 05/06/2025 11:59 PM EDT Hospital Encounter [facility] Phleb [address] [place] [address] Ping Gandara DO Discharge Disposition: Home or Self Care 05/06/2025 11:00 AM EDT Office Visit [facility] Rheumatology [address] [place] [address] [place] [address] Ping Gandara DO Thrombocytopenia (Primary Dx); Pain of right foot; Localized swelling of right foot; LFTs abnormal; Eosinophilia, unspecified type; Positive LOBO (antinuclear antibody) 05/03/2025 9:52 AM EDT - 05/03/2025 11:59 PM EDT Hospital Encounter [facility], X-Ray - [facility] [address] [place] [address] Stella Oneal MD Discharge Disposition: Home or Self Care 05/02/2025 8:38 AM EDT - 05/02/2025 11:59 PM EDT Hospital Encounter [facility] Laboratory [address] [place] [address] Stella Oneal MD Discharge Disposition: Home or Self Care 05/02/2025 8:00 AM EDT Office Visit [facility] [address] [place] [address] Stella Oneal MD Type 2 diabetes mellitus with microalbuminuria, without long-term current use of insulin (Primary Dx); Right foot pain; Erectile disorder due to medical condition in male patient; Vitamin D deficiency, unspecified; Normocytic anemia; Pain of right foot; Ischemic heart disease; Positive LOBO (antinuclear antibody); Essential hypertension 04/25/2025 10:12 AM EDT - 04/25/2025 11:59 PM EDT Hospital Encounter [facility]le[facility] Main [address] [place] [address] Aliza Marin MBBS Discharge Disposition: Home or Self Care 04/24/2025 Telephone [facility] [address], [place] [id number] Stella Oneal MD Request For Order(s) from Last 3 Months Immunizations Immunization Administration Dates Next Due COVID-19 (Pre-05/23) Pfizer Vaccine, mRNA, PF 09/15/2020,08/25/2020 COVID-19 Pfizer Comirnaty Vaccine 12+ 05/04/2023 Hepatitis A, Adult 04/01/2017 INFLUENZA, SPLIT VIRUS, TRIV ALENT W/ PRESERVATIVE IM 05/08/2015 Influenza High-Dose Quadriva lent Preservative Free IM 06/10/2022 Influenza High-Dose Trivalen t Preservative Free IM 05/02/2025 Influenza Quadrivalent Adjuv anted Preservative Free IM [...] Orientation Straight 09/29/2018 11 :28 AM EST Occupation Industry Job Start Date Job End Date 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 Not on file Not on file No t on file Last Filed Vital Signs Vital Sign Reading Time Taken Comments Blood Pressure 140/90 06/03/2025 8:24 AM EST Pulse 70 06/03/2025 8:03 AM EST Temperature 35.8 C (96.4 F) 05/09/2025 9:05 AM EDT Respiratory Rate 18 03/04/2025 12:20 PM EDT Oxygen Saturation 99% 06/03/2025 8:03 AM EST Inhaled Oxygen Concentration - - Weight 98.4 kg (217 lb) 06/03/2025 8:03 AM EST Height 182.9 cm (6' 0.01 ) 06/03/2025 8:03 AM ES T Body Mass Index 29.42 06/03/2025 8:03 AM EST Plan of Treatment Upcoming Encounters Date Type Department Care Team (Late st Contact Info) Description 07/15/2025 8:00 AM EST Office Visit [facility] [address] [place] [address] Ping Gandara, [address] [facility], [address] [place] [address] [email or web address] 08/12/2025 8:00 AM EST Office Visit [facility] [address] [place] [address] Stella Oneal MD [address] [facility] [address] [place] [address] [email or web address] 09/02/2025 10:00 AM EST Office Visit [facility] [address] [place] [address] Jessica Diaz PA-C [address] [address] 11/07/2025 9:20 AM EDT Office Visit [facility] [address] [place] [address] Aliza Marin MBBS [address] [place] [address] 12/02/2025 8:00 AM EDT Office Visit [facility] [address] [facility] 3rd Floor, [address] [place] [address] Valerie Ramos, DNP [address] [facility], [address] [place] [address] [email or web address] Health Maintenance Due Date Last Done Comments COLOGUARD 2000 FIT TEST 2000 FOBT 2000 SIGMOIDOSCOPY 2000 VIRTUAL COLONOSCOPY 2000 HEPATITIS A VACCINES (2 of 2 - Risk 2-dose series) 09/29/2017 04/01/2017 DEPRESSION SCREENING 07/13/2024 07/13/2023 DIABETIC EYE EXAM 01/29/2025 01/30/2024, 05/19/2021 LIPID PANEL 10/29/2025 10/29/2024, 09/29, 06/06/2024, Additional history exists URINE MICROALBUMIN/CREATININE RATIO 10/29/2025 10/29/2024, 07/14/2023, 10/13/2021, Additional history exists HEMOGLOBIN A1C 10/31/2025 05/02/2025, 12/31, 10/29/2024, Additional history exists COVID-19 VACCINE ( season) 2025 05/03/2025, 04/10/2024, 05/04/2023, Additional history exists BLOOD PRESSURE 12/01/2025 06/03/2025 CREATININE LEVEL 04/25/2026 04/25/2025, , 10/10/2024, Additional history exists POTASSIUM LEVEL 04/25/2026 04/25/2025, 10/01, 10/10/2024, Additional history exists COLONOSCOPY 04/24/2031 04/24/2024, 04/0 09/2018, 10/31/2018, Additional history exists COLORECTAL CANCER SCREENING 04/24/2031 Adult Td,Tdap Booster 07/14/2033 07/14/2023 , 06/30/2013, 10/19/2002 ZOSTER VACCINES Completed 10/10/2020, 07/01, 09/11/2015 PNEUMOCOCCAL VACCINES (50+ years) Completed 06/10/2022, 05/08/2019, 06/02/2018 RSV VACCINE Completed 04/10/2024, 10/2022, 05/04/2023 HEPATITIS C SCREENING Completed 10/10/2024 , 06/06/2024, 05/10/2024, Additional history exists INFLUENZA VACCINE Completed 05/02/2025, , 06/19/2023, Additional history exists SMOKING STATUS SCREENING (Once After 26 Yrs) Completed 05/09/2025 HIB VACCINES Aged Out No longer eligi ble based on patient's age to complete this topic MENINGOCOCCAL VACCINES (ACWY) Aged Out No longer eligible based on patient's age to complete this topic MENINGOCOCCAL VACCINES (B) Aged Out N o longer eligible based on patient's age to complete this topic Medical Devices Implanted Type Area Laboratory Chief Device Identifier Shelf Expiration Date Model / Serial / Lot Metal Bilateral: Hip Procedures Procedure Name Priority Date/Time Associated Diagnosis Comments TOTAL PROTEIN CREATININE RATIO, RANDOM URINE Routine 05/06/2025 12:45 PM EDT Thrombocytopenia Pain of right foot LFTs abnormal URINALYSIS WITH REFLEX TO URINE CULTURE Routine 05/06/2025 12:45 PM EDT Thrombocytopenia Pain of right foot LFTs abnormal AMB REFERRAL TO [facility] RHEUMATOLOGY Routine 05/06/2025 12:23 PM EDT HISTONE ANTIBODY Routine 05/06/2025 12:2 1 PM EDT Thrombocytopenia Pain of right foot LFTs abnormal ANTINUCLEAR ANTIBODY HEP-2 SUBSTRATE (LOBO) Routine 05/06/2025 12:21 PM EDT Thrombocytopenia Pain of right foot LFTs abnormal THYROPEROXIDASE (TPO) ANTIBODIES Routine 05/06/2025 12:21 PM EDT Thrombocytopenia Pain of right foot LFTs abnormal COMPLEMENT C4 Routine 05/06/2025 12:21 PM EDT Thrombocytopenia Pain of right foot LFTs abnormal COMPLEMENT C3 Routine 05/06/2025 12:21 PM EDT Thrombocytopenia Pain of right foot LFTs abnormal SCL-70 ANTIBODY Routine 05/06/2025 12:21 PM EDT Thrombocytopenia Pain of right foot LFTs abnormal SS-A/SS-B ANTIBODIES Routine 05/06/2025 12:21 PM EDT Thrombocytopenia Pain of right foot LFTs abnormal CORE FEEDER ANTIBODY Routine 05/06/2025 12:21 PM EDT Thrombocytopenia Pain of right foot LFTs abnormal SM (GARDNER) ANTIBODY Routine 05/06/2025 1 2:21 PM EDT Thrombocytopenia Pain of right foot LFTs abnormal DOUBLE STRANDED DNA ANTIBODIES Routine 05/06/2025 12:21 PM EDT Thrombocytopenia Pain of right foot LFTs abnormal THYROGLOBULIN ANTIBODY Routine 12:21 PM EDT Thrombocytopenia Pain of right foot LFTs abnormal RHEUMATOID FACTOR Routine 05/06/2025 12: 21 PM EDT Thrombocytopenia Pain of right foot LFTs abnormal CCP IGG ANTIBODIES Routine 05/06/2025 12 :21 PM EDT Thrombocytopenia Pain of right foot LFTs abnormal SEDIMENTATION RATE (ESR) Routine 05/06/2025 12:21 PM EDT Thrombocytopenia Pain of right foot LFTs abnormal C-REACTIVE PROTEIN (CRP) Routine 05/06/2025 12:21 PM EDT Thrombocytopenia Pain of right foot LFTs abnormal ANTI-MITOCHONDRIAL ANTIBODY (AMA) Routine 05/06/2025 12:21 PM EDT Thrombocytopenia Pain of right foot LFTs abnormal SMOOTH MUSCLE ANTIBODY Routine 12:21 PM EDT Thrombocytopenia Pain of right foot LFTs abnormal XR FOOT 3 OR MORE VIEWS (RIGHT) Routine 05/03/2025 10:05 AM EDT Right foot pain HEMOGLOBIN A1C Routine 05/02/2025 8:38 AM EDT Type 2 diabetes mellitus with microalbuminuria, without long-term current use of insulin 25-OH VITAMIN D Routine 05/02/2025 8:38 AM EDT Vitamin D deficiency, unspecified URIC ACID Routine 05/02/2025 8:38 AM EDT Pain of right foot CBC AND DIFFERENTIAL Routine 04/25/2025 10:23 AM EDT Thrombocytopenia Positive LOBO (antinuclear antibody) Hepatic steatosis COMPREHENSIVE METABOLIC PANEL (CMP) Routine 04/25/2025 10:23 AM EDT Thrombocytopenia Positive LOBO (antinuclear antibody) Hepatic steatosis LYME SCREEN WITH REFLEX TO WESTERN BLOT, BLOOD Routine 04/25/2025 10:23 AM EDT Tick bite, unspecified site, initial encounter MICROALBUMIN/CREATININE RATIO, RANDOM URINE Routine 10/29/2024 8:14 AM EDT Type 2 diabetes mellitus with microalbuminuria, without long-term current use of insulin LIPID PANEL Routine 10/29/2024 8:09 AM EDT Type 2 diabetes mellitus with microalbuminuria, without long-term current use of insulin LIVER FIBROSIS TEST Routine 10/10/2024 9 :35 AM EDT Hyperlipidemia LDL goal <70 JOHNSON (nonalcoholic steatohepatitis) Other vitamin B12 deficiency anemia Vitamin D deficiency ENDOSCOPY, COLON 04/24/2024 7:26 AM EDT HM DIABETES EYE EXAM FOR RESULT ENTRY ONLY Routine 01/30/2024 12:59 PM EDT from Last 3 Months or Most Recently Relevant to Health Maintenance Results * (ABNORMAL) Urinalysis w/reflex Urine Culture (05/06/2025 12:45 PM EDT) COLOR Yellow Yellow [facility] CLARITY Clear [facility] GLUCOSE 1+(A) Negative [facility] BILI Negative Negative [facility] KETONES Trace(A) Negative [facility] SPECIFIC GRAVITY 1.025 1.005 - 1.030 [facility] BLOOD Negative Negative [facility] PH 6.0 5.0 - 8.0 [facility] Protein-UA Negative Negative [facility] NITRITE Negative Negative [facility] Leukocyte esterase, ur Negative Negative [facility] Urine (Urine) 05/06/2025 12: 45 PM EDT 05/06/2025 12:50 PM EDT Ping Gandara DO LAB URINE ORDERABLES Final Result Performing Organization Address [facility] Co de Phone Number [address] [address] * TOTAL PROTEIN CREATININE RATIO, RANDOM URINE (05/06/2025 12:45 PM EDT) URINE TOTAL PROTEIN 13.0 mg/dL [facility] URINE CREATININE 183 mg/dL [facility] URINE TP CRE RATIO 0.07 0 - 0.19 [facility] Urine (Urine) 05/06/2025 12: 45 PM EDT 05/06/2025 12:50 PM EDT Ping Gandara DO LAB URINE ORDERABLES Final Result Performing Organization Address [facility] de Phone Number [address] [address] * Ambulatory referral to [facility] Rheumatology (05/06/2025 12:23 PM EDT) Other Sara Adhikari NP AMB [facility] REFERRALS Final Result * Thyroglobulin antibody (05/06/2025 12:21 PM EDT) THYROGLOBULIN ANTIBODY, S <1.8 <4.0 IU/mL [facility] [address] Comment: (NOTE) ADDITIONAL INFORMATION PLEASE NOTE: The given thyroglobulin antibody (TgAb) reference cutoff of <4.0 IU/mL is for the evaluation of autoimmune thyroiditis. A cutoff of <1.8 IU/mL may be more suitable for the detection of potential thyroglobulin antibody (TgAb) interference in thyroglobulin immunoassays. The thyroglobulin antibody testing method is an immunoenzymatic assay manufactured by [employer] and performed on the [employer] DXI 800. Values obtained from different assay methods or kits may be different and cannot be used interchangeably. The results cannot be interpreted as absolute evidence for the presence or absence of malignant disease. Blood 05/06/2025 12:2 1 PM EDT 05/06/2025 12:34 PM EDT Ping Gandara DO LAB BLOOD ORDERABLES Final Result Performing Organization Address City/[facility]/ZIP Co de Phone Number [facility] MED/PATH [address] [place] [address] * SM (G[place]NER) ANTIBODY (05/06/2025 12:21 PM EDT) SM AB, IGG, S <0.2 <1.0 (Negative) U [facility]/[address] [place]ENE[place] Blood 05/06/2025 12:2 1 PM EDT 05/06/2025 12:34 PM EDT Ping Gandara LAB BLOOD ORDERABLES Final Result Performing Organization Address [facility] Co de Phone Number [facility] MED/[address] [place] [address] * ANTINUCLEAR ANTIBODY HEP-2 SUBSTRATE (LOBO) (05/06/2025 12:21 PM EDT) LOBO AB HEP-2 <1:80 (Negative) <1:80 (Negativ e) [facility] MED/[facility] [address] Comment: (NOTE) ADDITIONAL INFORMATION Method: Immunofluorescence using HEp-2 cellular substrate. LOBO TITER Test component not applicable or not reported. [facility]/[address] LOBO PATTERN Test component not applicable or not reported. [facility] DR LOBO TITER 2 Test component not applicable or not reported. [facility] DR LOBO PATTERN 2 Test component not applicable or not reported. [facility] DR CYTOPLASMIC PATTERN Test component not applicable or not reported. [facility] DR LAB COMMENT Test component not applicable or not reported. [facility] DR Blood 05/06/2025 12:2 1 PM EDT 05/06/2025 12:34 PM EDT Ping Gandara DO LAB BLOOD BKR ORDERABLES F inal Result Performing Organization Address City/[facility]/ZIP Co de Phone Number [facility]/[address] [place] [address] * CORE FEEDER ANTIBODY (05/06/2025 12:21 PM EDT) CORE FEEDER AB, IGG <0.2 <1.0 (Negative) U [facility] DR Blood 05/06/2025 12:2 1 PM EDT 05/06/2025 12:34 PM EDT Ping Gandara DO LAB BLOOD ORDERABLES Final Result Performing Organization Address [facility] Co de Phone Number [facility]/[address] [place] [address] * SS-A/SS-B antibodies (05/06/2025 12:21 PM EDT) ANTI-RO ANTIBODY 1.69 0.00 - 19.99 OD UNIT [facility] RO INTERPRETATION Negative Negative [facility] ANTI-LA ANTIBODY 1.80 0.00 - 19.99 OD UNIT [facility] LA INTERPRETATION Negative Negative [facility] Blood 05/06/2025 12:2 1 PM EDT 05/06/2025 12:33 PM EDT Ping Gandara DO LAB BLOOD ORDERABLES Final Result Performing Organization Address City/[facility] Co de Phone Number [facility] [address] [place] [address] * Histone antibody (05/06/2025 12:21 PM EDT) Histone Antibodies <1.0 <1.0 U [facility] Comment: (NOTE) Value Explanation of Results ------ <1.0 Negative 1.0 - 1.5 Weak Positive 1.6 - 2.5 Moderate Positive >2.5 Strong Positive Blood 05/06/2025 12:2 1 PM EDT 05/06/2025 12:34 PM EDT Ping Gandara DO LAB BLOOD BKR ORDERABLES F inal Result Performing Organization Address [facility] Co de Phone Number [facility] [address] [place], [place] * Thyroperoxidase (TPO) antibodies (05/06/2025 12:21 PM EDT) THYROPEROXIDASE AB, S 1.9 <9.0 IU/mL [facility]PATH [address] Blood 05/06/2025 12:2 1 PM EDT 05/06/2025 12:34 PM EDT Ping Gandara DO LAB BLOOD BKR ORDERABLES F inal Result Performing Organization Address [facility] Co de Phone Number [facility]PATH [address] [place] [address] * CCP IgG antibodies (05/06/2025 12:21 PM EDT) ANTI-CCP IGG <8 0 - 16 U/mL [facility] Blood 05/06/2025 12:2 1 PM EDT 05/06/2025 12:33 PM EDT Ping Gandara DO LAB BLOOD BKR ORDERABLES F inal Result Performing Organization Address City/[facility] Co de Phone Number [facility] [address] [place] [address] * Scl-70 antibody (05/06/2025 12:21 PM EDT) SCL 70 AB, IGG <0.2 <1.0 (Negative) U [facility]/PATH [address] Blood 05/06/2025 12:2 1 PM EDT 05/06/2025 12:34 PM EDT Ping Gandara DO LAB BLOOD ORDERABLES Final Result [facility]/PATH [address] [place] [address] * Double stranded DNA antibodies (05/06/2025 12:21 PM EDT) ANTI DSDNA ANTIBODY POSITIVE AT 1:40 [facility] Comment: Performing Pathologist, Harini Becker M.D., Ph.D. [phone] Normal: Negative at 1:10 Anti-enterprise DNA Antibodies detected on Crithidia luciliae substrate. The indirect immunofluorescence test on Crithidia luciliae substrate shows that antibodies in the serum of this patient react with the kinetoplast of Crithidia luciliae, a monoflagellate protozoan organism. The kinetoplast contains small ringlets of double-stranded DNA. It does not contain single-stranded DNA or, except in very unusual circumstances, free histones. This staining pattern therefore most likely reflects the presence of antibodies to double-stranded DNA. Antibodies to double-stranded DNA are found in patients with SLE and in about 20 per cent of patients with mixed connective tissue disease (MCTD). This antibody is rarely found in other rheumatic diseases or in drug-induced SLE. Kiqx-joldkx-nsyksybx DNA antibodies are usually detected in SLE patients with active disease, but not in those with spontaneous or induced remissions. Sequential testing of serum for the presence and titer of this antibody provides a cost-effective approach to following disease activity in many patients with SLE. Blood 05/06/2025 12:2 1 PM EDT 05/06/2025 12:33 PM EDT Ping Gandara DO LAB BLOOD BKR ORDERABLES F inal Result [facility] [address] [place] [address] * Anti-Mitochondrial Antibody (AMA) (05/06/2025 12:21 PM EDT) MITOCHONDRIAL AB M2 <0.1 <0.1 (Negative) U [facility]/PATH [address] Blood 05/06/2025 12:2 1 PM EDT 05/06/2025 12:34 PM EDT Ping Gandara DO LAB BLOOD ORDERABLES Final Result Performing Organization Address [facility] Co de Phone Number [facility]/PATH [address] [place] [address] * Smooth Muscle Antibody (05/06/2025 12:21 PM EDT) Pathologist [facility] ANTI-SMOOTH MUSCLE AB Negative Negative [facility]/PATH [address] Comment: (NOTE) Negative: No further testing will be performed ADDITIONAL INFORMATION This test was developed and its performance characteristics determined by [facility] in a manner consistent with CLIA requirements. This test has not been cleared or approved by the U.S. Food and Drug Administration. Blood 05/06/2025 12:2 1 PM EDT 05/06/2025 12:34 PM EDT Ping Gandara DO LAB BLOOD ORDERABLES Final Result Performing Organization Address City/[facility]/ZIP Co de Phone Number [facility]/PATH [address] [place] [address] * (ABNORMAL) Sedimentation rate (ESR) (05/06/2025 12:21 PM EDT) Pathologist [facility] ESR 26(H) 0 - 20 mm/h [facility] Blood 05/06/2025 12:2 1 PM EDT 05/06/2025 12:34 PM EDT us Ping Gandara DO LAB BLOOD BKR ORDERABLES F inal Result [address] [address] * Rheumatoid factor (05/06/2025 12:21 PM EDT) RHEUMATOID FACTOR 11.7 0.0 - 14.0 IU/ml [facility] Blood 05/06/2025 12:2 1 PM EDT 05/06/2025 12:34 PM EDT us Ping Gandara DO LAB BLOOD BKR ORDERABLES F inal Result Performing Organization Address City/[facility]/ZIP Co de Phone Number [address] [address] * Complement C3 (05/06/2025 12:21 PM EDT) C3 116 81 - 157 mg/dl [facility] Blood 05/06/2025 12:2 1 PM EDT 05/06/2025 12:33 PM EDT us Ping Gandara DO LAB BLOOD BKR ORDERABLES F inal Result Performing Organization Address City/[facility]/ZIP Co de Phone Number [address] [address] * Complement C4 (05/06/2025 12:21 PM EDT) C4 16 12 - 39 mg/dL [facility] Blood 05/06/2025 12:2 1 PM EDT 05/06/2025 12:33 PM EDT us Ping Gandara DO LAB BLOOD BKR ORDERABLES F inal Result Performing Organization Address City/[facility]/ZIP Co de Phone Number [address] [address] * C-Reactive Protein (05/06/2025 12:21 PM EDT) C REACTIVE PROTEIN <3.0 0.0 - 4.0 mg/L [facility] Blood 05/06/2025 12:2 1 PM EDT 05/06/2025 12:34 PM EDT us Ping Gandara DO LAB BLOOD BKR ORDERABLES F inal Result [facility] [address] [place] [address] * XR FOOT 3 OR MORE VIEWS (RIGHT) (05/03/2025 10:05 AM EDT) Anatomical Region Laterality Modality Foot Right Computed Radiogr aphy 05/04/2025 8:31 AM EDT Impressions 05/04/2025 8:34 AM EDT No acute fracture or dislocation. If there is a strong clinical concern for occult fracture follow-up CT or MRI can be considered Mild degenerative changes. Calcaneal enthesopathy. Atherosclerotic vascular calcifications. Narrative 05/04/2025 8:34 AM EDT XR FOOT 3 OR MORE VIEWS (RIGHT) Referring clinician's provided indication for this examination in Epic: Pain COMPARISON: None FINDINGS: No acute displaced fracture or dislocation. There are mild degenerative changes involving the first MTP joint and interphalangeal joint as well as the mid foot. There are small spurs off the plantar surface and lesser extent posterior calcaneus. There are atherosclerotic vascular calcifications present. Procedure Note Elian Albright MD - 05/04/2025 XR FOOT 3 OR MORE VIEWS (RIGHT) Referring clinician's provided indication for this examination in [facility]:Pain COMPARISON: None FINDINGS: No acute displaced fracture or dislocation. There are mild degenerativechanges involving the first MTP joint and interphalangeal joint as well asthe mid foot. There are small spurs off the plantar surface and lesserextent posterior calcaneus. There are atherosclerotic vascularcalcifications present. IMPRESSION: No acute fracture or dislocation. If there is a strong clinical concernfor occult fracture follow-up CT or MRI can be considered Mild degenerative changes. Calcaneal enthesopathy. Atherosclerotic vascular calcifications. us Stella Oneal MD IMG XR LOWER EXTREMITY Hue l Result * 25-OH vitamin D (05/02/2025 8:38 AM EDT) 25 OH VIT D (TOTAL) 42 30 - 60 ng/mL [facility] Blood 05/02/2025 8:38 AM EDT 05/02/2025 8:44 AM EDT us Stella Oneal MD LAB BLOOD BKR ORDERABLES Fi nal Result Performing Organization Address [facility] Co de Phone Number [address] [address] * Uric acid (05/02/2025 8:38 AM EDT) URIC ACID 5.7 2.4 - 7.0 mg/dL [facility] Blood 05/02/2025 8:38 AM EDT 05/02/2025 8:44 AM EDT us Stella Oneal MD LAB BLOOD BKR ORDERABLES Fi nal Result Performing Organization Address [facility]/ZIP Co de Phone Number [address] [address] * (ABNORMAL) Hemoglobin A1c (05/02/2025 8:38 AM EDT) HEMOGLOBIN A1C 6.7(H) 4.3 - 5.8 % [facility] Blood 05/02/2025 8:38 AM EDT 05/02/2025 8:44 AM EDT us Stella Oneal MD LAB BLOOD BKR ORDERABLES Fi nal Result [address] [address] * Lyme Screen with Reflex to Immunoblot, Blood (04/25/2025 10:23 AM EDT) Lyme AB IgG Negative Negative [facility] Lyme AB IgM Negative Negative [facility] Blood 04/25/2025 10:2 3 AM EDT 04/25/2025 10:28 AM EDT us Stella Oneal MD LAB BLOOD BKR ORDERABLES Fi nal Result Performing Organization Address [facility] Co de Phone Number [address] [address] * (ABNORMAL) Comprehensive metabolic panel (04/25/2025 10:23 AM EDT) Pathologist [facility] SODIUM 140 133 - 146 mmol/L [facility] POTASSIUM 4.4 3.3 - 5.1 mmol/L [facility] CHLORIDE 103 96 - 108 mmol/L [facility] CO2 21 21 - 35 mmol/L [facility] BUN 18 6 - 19 mg/dL [facility] CREATININE 0.80 0.5 - 1.5 mg/dL [facility] GLUCOSE 131(H) 70 - 99 mg/dL [facility] ALBUMIN 4.4 3.9 - 4.8 g/dL [facility] TOTAL PROTEIN 8.0 6.5 - 8.0 g/dL [facility] CALCIUM 9.5 8.4 - 10.3 mg/dL [facility] ALKALINE PHOSPHATASE 82 39 - 117 U/L [facility] TOTAL BILIRUBIN 0.8 0.0 - 1.2 mg/dL [facility] AST 41(H) 0 - 37 U/L [facility] ALT 41(H) 0 - 40 U/L [facility] GLOBULIN 3.6 1 - 4.8 g/dL [facility] EGFR 96 >59 mL/min/1.7 3m2 [facility] Comment:Estimated glomerular filtration rate calculated using the CKD-EPI refit equation. ANION GAP 20 10 - 20 mmol/L [facility] Blood 04/25/2025 10:2 3 AM EDT 04/25/2025 10:28 AM EDT us Aliza Marin MBBS LAB BLOOD BKR ORDERABLES Fin al Result [facility] [address] [place], [place] [id number] * (ABNORMAL) CBC and differential (04/25/2025 10:23 AM EDT) WBC 4.41 4.00 - 11.00 K/uL [facility] RBC 4.27(L) 4.50 - 5.90 M/uL [facility] HGB 12.7(L) 13.5 - 17.5 g/dL [facility] HCT 38.5(L) 41.0 - 53.0 % [facility] PLT 103(L) 150 - 450 K/uL [facility] Comment:Consistent with prev ious results. MCV 90.2 80.0 - 100.0 fL [facility] MCH 29.7 27.0 - 31.0 pg [facility] MCHC 33.0 32.0 - 36.0 g/dL [facility] RDW 13.4 11.5 - 14.5 % [facility] MPV 10.9 8.4 - 12.0 fL [facility] NRBC 0.00 0.00 /100 WBCs [facility] ABSOLUTE NRBC 0.00 0.00 K/uL [facility] DIFF METHOD Auto [facility] NEUTS 56.2 48.0 - 76.0 % [facility] LYMPHS 23.6 18.0 - 41.0 % [facility] MONOS 10.4 4.0 - 11.0 % [facility] EOS 8.4(H) 0.0 - 5.0 % [facility] BASOS 0.9 0.0 - 1.5 % [facility] Granulocytes, immature (%) 0.5 0.0 - 0.9 % [facility] ABSOLUTE NEUTS 2.48 1.92 - 7.60 K/uL [facility] ABSOLUTE LYMPHS 1.04 0.72 - 4.10 K/uL [facility] ABSOLUTE MONOS 0.46 0.16 - 1.10 K/uL [facility] ABSOLUTE EOS 0.37 0.00 - 0.50 K/uL [facility] ABSOLUTE BASOS 0.04 0.00 - 0.15 K/uL [facility] Granulocytes, immature 0.02 0.00 - 0.09 K/uL [facility] Blood 04/25/2025 10:2 3 AM EDT 04/25/2025 10:28 AM EDT us Aliza DOW LAB BLOOD BKR ORDERABLES Fin al Result [address] [address] * Microalbumin/creatinine ratio, random urine (10/29/2024 8:14 AM EDT) URINE MICROALBUMIN 1.6 0 - 2.3 mg/dL [facility] URINE CREATININE 122 mg/dL [facility] MICROALB/CRE RATIO 13.1 0 - 20 mg/g Cre [facility] Urine (Urine) 10/29/2024 8:1 4 AM EDT 10/29/2024 8:16 AM EDT us Stella Oneal MD LAB URINE ORDERABLES Final Result [address] [address] * (ABNORMAL) Lipid panel (10/29/2024 8:09 AM EDT) HDL 67 mg/dL [facility] Comment: Interpretation <40 mg/dL: Low HDL cholesterol (major risk factor for CHD) Greater than or equal to 60 mg/dL: High HDL cholesterol ( negative risk factor for CHD) HDL - cholesterol is affected by a number of factors, e.g. smoking, excerise, hormones, sex and age. CHOLESTEROL 135 0 - 240 mg/dL [facility] TRIGLYCERIDES 43 30 - 160 mg/dL [facility] LDL 59 50 - 129 mg/dL [facility] Comment: LDL levels in terms of risk for coronary heart disease: <100 mg/dL: Optimal 100-129 mg/dL: Near or above optimal 130-159 mg/dL: Borderline high 160-189 mg/dL: High >190 mg/dL: Very High CARDIAC RISK RATIO 2.0(L) 3.4 - 5.0 [facility] Blood 10/29/2024 8:09 AM EDT 10/29/2024 8:15 AM EDT us Stella Oneal MD LAB BLOOD BKR ORDERABLES Fi nal Result [address] [address] * (ABNORMAL) Liver fibrosis test (10/10/2024 9:35 AM EDT) Fibrosis score 0.70 [facility] Interpretation (Fibrosis) SEE NOTE [facility] Comment: (NOTE) advanced fibrosis Fibro Test Score [...] NECROINFLAMM SCORE 0.27 Q [facility] NECROINFLAMM GRADE SEE NOTE Q [facility] Comment: (NOTE) Result: A0-A1 NECROINFLAMM INTERP SEE NOTE [facility] Comment: (NOTE) no activity ActiTest Score (a) [...] A2 Macroglobulin 422(H) 106 - 279 mg/dL [email or web address] Haptoglobin 151 43 - 212 mg/dL [facility] Apolipoprotein A1 184(H) 94 - 176 mg/dL [email or web address] TOTAL BILIRUBIN 0.7 0.2 - 1.2 mg/dL [email or web address] GGT 73(H) 3 - 70 U/L [facility] ALT 33 9 - 46 U/L [email or web address] Specimen/Product ID [id number] [email or web address] Comments (Chemistry) SEE NOTE [email or web address] Comment: (NOTE) The reliability of results is dependent on compliance with the preanalytical and analytical conditions recommended by [employer]. The tests have to be deferred for: [...] The performance characteristics have been determined by [employer] [facility]. It has not been cleared or approved by the U.S. Food and Drug Administration. Performance characteristics refer to the analytical performance of the test. [facility], [employer], the associated logo, Gabriele Phelan and all associated [employer] valle are the registered trademarks of [employer]. All third alliance party valle - (R) and (TM) - are the property of their respective owners. (C) 1913-9087 [employer]. All rights reserved. Blood 10/10/2024 9:35 AM EDT 10/10/2024 10:00 AM EDT us Jessica LIZ LAB BLOOD BKR ORDERABLES Fi nal Result [facility] [address] [place] [address], [facility] [phone] * ENDOSCOPY, COLON (04/24/2024 7:26 AM EDT) Narrative Transcriptions Terrence Nelson MD - 04/24/2024 7:26 AM EDT [facility] Patient Name: Carlos Hernandez Attending MD:: TERRENCE NELSON MD, Procedure Date: 04/24/2024 7:26 AM Date of : 1955 Age: 68 Admit Type: Outpatient Gender: Male Room: [facility] Referring MD: Stella Oneal Exam Type: Colonoscopy [...] not get results in 3 weeks telephone dorothy. TERRENCE NELSON MD 04/24/2024 7:48:51 AM This report has been signed electronically. Number of Addenda: 0 Note Initiated On: 04/24/2024 7:26 AM Procedure Code(s): --- Professional --- 43099, Colonoscopy, flexible; with removal of tumor(s), polyp(s), or other lesion(s) by snare technique --- Technical --- 87035, Colonoscopy, flexible; with removal of tumor(s), polyp(s), [...] or abscess without bleeding CPT copyright 2021 [employer]. All rights reserved. The codes documented in this report are preliminary and upon spare hand carding reviewmay be revised to meet current compliance requirements. 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 06/19/2024 Insurance [employer] MEDEX SUPPLEMENT MEDICARE PART A & B [employer] MEDEX SUPPLEMENT MEDICARE PART A & B [employer] MEDEX SUPPLEMENT MEDICARE PART A & B MEDEX SUPPLEMENT MEDICARE PART A & B [employer] MEDEX SUPPLEMENT MEDICARE PART A & B [employer] MEDEX SUPPLEMENT MEDICARE PART A & B [employer] MEDEX SUPPLEMENT MEDICARE PART A & B [employer] MEDEX SUPPLEMENT MEDICARE PART A & B MEDEX SUPPLEMENT MEDICARE PART A & B 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 Insurance Assigned Provider 11/04/24 Aliza Marin MBBS [address] [place] [id number] [email or web address] Primary Oncologist Medical Oncology 05/03/25 Additional Source Comments The information contained in this document represents components of the legal health record. It is not the complete legal health record.[facility]
--- OUTSIDE RECORDS SUMMARY | 2025-07-10 18:00 | XMS_ITS | Encounter Summary ---
Author Organization [facility] Address [address] [place] [address] Phone Care Team Providers Care Freelance Writer Name Role Phone Stella Oneal MD Primary Care Provider Stella Oneal MD Unavailable Aliza Marin Unavailable [phone] Encounter Details Date Type Department Care Team (Latest Contact Info) Description 10/10/2024 Transcribe Orders [facility] Phleb Paula [address] [phone] Jessica Diaz PA 10 [place] [address] Hyperlipidemia LDL goal <70 (Primary Dx); JOHNSON [...] Description 07/15/2025 8:00 AM EST Office Visit [facility] Rheumatology 22 [place] [address] Ping Gandara, [address], [address] [place] [address] [email or web address] 08/12/2025 8:00 AM EST Office Visit [address] [address] Stella Oneal MD [address] [place] [address] [address] [place] [address] [email or web address] 09/02/2025 10:00 AM EST Office Visit [facility] 10 [place] [address] Jessica Diaz PA-C [address] [address] 11/07/2025 9:20 AM EDT Office Visit [facility] at [address] [address] Aliza Marin MBBS 30 [place] [address] 12/02/2025 8:00 AM EDT Office Visit [facility] 22 [facility] 3rd Floor, [address] [place] [address] Valerie Ramos, TAAMR 22 [facility], [address] [place] [address] documented as of this encounter Results * (ABNORMAL) 25-OH vitamin D (10/10/2024 9:35 AM EDT) 25 [place] VIT D (TOTAL) 18(L) 30 - 60 ng/mL [facility] Blood 10/10/2024 9:35 AM EDT 10/10/2024 9:59 AM EDT us Jessica LIZ LAB BLOOD BKR ORDERABLES Fi nal Result [address] [address] * Vitamin B12 (10/10/2024 9:35 AM EDT) VITAMIN B12 1,140 232 - 1,245 pg/mL [facility] Blood 10/10/2024 9:35 AM EDT 10/10/2024 9:59 AM EDT us Jessica LIZ LAB BLOOD BKR ORDERABLES Fi nal Result [address] [address] * PT-INR (10/10/2024 9:35 AM EDT) PT 12.1 10.2 - 12.9 sec [facility] INR 1.1 0.9 - 1.1 [facility] Comment:Therapeutic range fo r oral Vitamin K antagonists: 2.0-3.5 Blood 10/10/2024 9:35 AM EDT 10/10/2024 9:59 AM EDT us Jessica LIZ LAB BLOOD BKR ORDERABLES Fi nal Result [address] [address] * (ABNORMAL) Lipid panel (10/10/2024 9:35 AM EDT) Pathologist [facility] HDL 64 mg/dL [facility] Comment: Interpretation <40 mg/dL: Low HDL cholesterol (major risk factor for CHD) Greater than or equal to 60 mg/dL: High HDL cholesterol ( negative risk factor for CHD) HDL - cholesterol is affected by a number of factors, e.g. smoking, excerise, hormones, sex and age. CHOLESTEROL 134 0 - 240 mg/dL [facility] TRIGLYCERIDES 53 30 - 160 mg/dL [facility] LDL 59 50 - 129 mg/dL [facility] Comment: LDL levels in terms of risk for coronary heart disease: <100 mg/dL: Optimal 100-129 mg/dL: Near or above optimal 130-159 mg/dL: Borderline high 160-189 mg/dL: High >190 mg/dL: Very High CARDIAC RISK RATIO 2.1(L) 3.4 - 5.0 C [facility] Blood 10/10/2024 9:35 AM EDT 10/10/2024 10:00 AM EDT us Jessica LIZ LAB BLOOD BKR ORDERABLES Fi nal Result [address] [address] * (ABNORMAL) Comprehensive metabolic panel (10/10/2024 9:35 AM EDT) SODIUM 139 133 - 146 mmol/L [facility] POTASSIUM 4.4 3.3 - 5.1 mmol/L [facility] CHLORIDE 104 96 - 108 mmol/L [facility] CO2 26 21 - 35 mmol/L [facility] BUN 17 6 - 19 mg/dL [facility] CREATININE 0.90 0.5 - 1.5 mg/dL [facility] GLUCOSE 134(H) 70 - 99 mg/dL [facility] ALBUMIN 4.1 3.9 - 4.8 g/dL [facility] TOTAL PROTEIN 7.8 6.5 - 8.0 g/dL [facility] CALCIUM 9.6 8.4 - 10.3 mg/dL [facility] ALKALINE PHOSPHATASE 94 39 - 117 U/L [facility] TOTAL BILIRUBIN 0.6 0.0 - 1.2 mg/dL [facility] AST 50(H) 0 - 37 U/L [facility] ALT 40 0 - 40 U/L [facility] GLOBULIN 3.7 1 - 4.8 g/dL [facility] EGFR 92 >59 mL/min/1.7 3m2 [facility] Comment:Estimated glomerular filtration rate calculated using the CKD-EPI refit equation. ANION GAP 13 10 - 20 mmol/L [facility] Blood 10/10/2024 9:35 AM EDT 10/10/2024 9:59 AM EDT us Jessica LIZ LAB BLOOD BKR ORDERABLES Fi nal Result [address] [id number] * (ABNORMAL) CBC and differential (10/10/2024 9:35 AM EDT) WBC 4.34 4.00 - 11.00 K/uL [facility] RBC 4.25(L) 4.50 - 5.90 M/uL [facility] HGB 12.4(L) 13.5 - 17.5 g/dL [facility] HCT 37.9(L) 41.0 - 53.0 % [facility] PLT 82(L) 150 - 450 K/uL [facility] Comment:Microscopic estimate : Platelets decreased. MCV 89.2 80.0 - 100.0 fL [facility] MCH 29.2 27.0 - 31.0 pg [facility] MCHC 32.7 32.0 - 36.0 g/dL [facility] RDW 13.6 11.5 - 14.5 % [facility] MPV 11.6 8.4 - 12.0 fL [facility] NRBC 0.00 0.00 /100 WBCs [facility] ABSOLUTE NRBC 0.00 0.00 K/uL [facility] DIFF METHOD Auto [facility] NEUTS 63.0 48.0 - 76.0 % [facility] LYMPHS 18.9 18.0 - 41.0 % [facility] MONOS 9.2 4.0 - 11.0 % [facility] EOS 7.8(H) 0.0 - 5.0 % [facility] BASOS 0.9 0.0 - 1.5 % [facility] Granulocytes, immature (%) 0.2 0.0 - 0.9 % [facility] ABSOLUTE NEUTS 2.73 1.92 - 7.60 K/uL [facility] ABSOLUTE LYMPHS 0.82 0.72 - 4.10 K/uL [facility] ABSOLUTE MONOS 0.40 0.16 - 1.10 K/uL [facility] ABSOLUTE EOS 0.34 0.00 - 0.50 K/uL [facility] ABSOLUTE BASOS 0.04 0.00 - 0.15 K/uL [facility] Granulocytes, immature 0.01 0.00 - 0.09 K/uL [facility] Blood 10/10/2024 9:35 AM EDT 10/10/2024 9:59 AM EDT us Jessica LIZ LAB BLOOD BKR ORDERABLES Fi nal Result [facility] 30 [place] [address] * (ABNORMAL) Liver fibrosis test (10/10/2024 9:35 AM EDT) Fibrosis score 0.70 [facility] Interpretation (Fibrosis) SEE NOTE [facility] Comment: (NOTE) advanced fibrosis Fibro Test Score [...] HCV Fibrosis Grade F3 Q [facility] NECROINFLAMM SCORE 0.27 [facility] NECROINFLAMM GRADE SEE NOTE Q [facility] Comment: (NOTE) Result: A0-A1 NECROINFLAMM INTERP SEE NOTE [facility] Comment: (NOTE) no activity ActiTest Score (a) [...] A2 Macroglobulin 422(H) 106 - 279 mg/dL [facility] Haptoglobin 151 43 - 212 mg/dL [facility] Apolipoprotein A1 184(H) 94 - 176 mg/dL [facility] TOTAL BILIRUBIN 0.7 0.2 - 1.2 mg/dL [facility] GGT 73(H) 3 - 70 U/L [facility] ALT 33 9 - 46 U/L [facility]/ [facility] Specimen/Product ID [id number] [facility] Comments (Chemistry) SEE NOTE [employer]/ [facility] Comment: (NOTE) The reliability of results is dependent on compliance with the preanalytical and analytical conditions recommended by [employer]. The tests have to be deferred for: [...] The performance characteristics have been determined by [facility]. It has not been cleared or approved by the U.S. Food and Drug Administration. Performance characteristics refer to the analytical performance of the test. [employer], the associated logo, dot429 and all associated [employer] valle are the registered trademarks of [employer]. All third constitution party valle - (R) and (TM) - are the property of their respective owners. (C) [id number] [employer]. All rights reserved. Blood 10/10/2024 9:35 AM EDT 10/10/2024 10:00 AM EDT us Jessica LIZ LAB BLOOD BKR ORDERABLES Fi nal Result [facility] [address] [place] [address], [place] [phone] documented in this encounter Visit Diagnoses Diagnosis [...] documented as of this encounter Care Teams Freelance Writer Relationship Specialty Start Date End Date Stella Oneal MD 234 [facility], [facility] 7 [place] [address] [email or web address] PCP - General Family Medicine 08/09/24 Stella Oneal MD [address] [place] [address] 7 [place] [address] [email or web address] Insurance Assigned Provider 11/04/24 Aliza Marin MBBS [address] [place] [address] [email or web address] Primary Oncologist Medical Oncology 05/03/25 documented as of this encounter Additional Source Comments The information contained in this document represents components of the legal health record. It is not the complete legal health record.[facility]
--- OUTSIDE RECORDS SUMMARY | 2025-07-10 18:01 | XMS_ITS | Encounter Summary ---
Author Organization [facility] Address [address] [place] [address] Phone Care Team Providers Care Donkey Engine Firer/Fireman Name Role Phone Osmin Marquez MD Primary Care Provider [phone] Osmin Marquez MD Unavailable [phone] Osmin Marquez MD Unavailable [phone] Stella Oneal MD Primary Care Provider Aliza Marin Primary Care Provider Stella Oneal MD Primary Care Provider Stella Oneal MD Unavailable Aliza Marin Unavailable Reason for Referral * Physical Therapy (Routine) - Closed Specialty Diagnoses / Procedures Referred By Nadege justice Referred To Contact Physical Therapy Diagnoses Encounter for rehabilitation Lumbar Radiculopathy Procedures Evaluate & Treat System, Provider Not In, PhD [address] [address] Phone: tel: Referral ID Status Reason Start Date Expiration Date Visits Re quested Visits Authorized [id number] Closed 08/14/2018 01/28/2019 30 30 Encounter Details Date Type Department Care Team (Latest Contact Info) Description 08/14/2018 Transcribe Orders [facility] 4 [place] [address] Michael Croft MD [address] [place] [phone] Encounter for rehabilitation (Primary Dx) Social [...] Description 07/15/2025 8:00 AM EST Office Visit [facility] Rheumatology [address] [place] [address] Ping Gandara DO [address] [place] [address], [address] [place] [address] [email or web address] 08/12/2025 8:00 AM EST Office Visit [address] [address] Stella Oneal MD [address] [place] [address] 7 [place] [address] [email or web address] 09/02/2025 10:00 AM EST Office Visit [facility] [address] [place] [address] Jessica Diaz PA-C [address] [address] 11/07/2025 9:20 AM EDT Office Visit [facility] 30 [place] [address] Aliza Marin MBBS 30 [place] [address] [email or web address] 12/02/2025 8:00 AM EDT Office Visit [facility] [address] [place] [address] 3rd Floor, [address] [place] [address] Valerie Ramos, TAMAR 22 [facility], [address] [place] [address] [email or web address] documented as of this encounter Procedures Procedure Name Priority Date/Time Associated Diagnosis Comments AMB REFERRAL TO [facility] PHYSICAL THERAPY Routine 08/14/2018 10:21 PM EST Encounter for rehabilitation documented in this encounter Results * Ambulatory referral to [facility] Physical Therapy (08/14/2018 10:21 PM EST) us Provider Not In System PhD AMB [facility] REFERRALS Fin al Result documented in this encounter Visit Diagnoses Diagnosis Encounter for rehabilitation- Primary documented in this encounter Additional Health Concerns Infection Onset Date Last Indicated Resolved Time MRSA 06/19/2024 06/19/2024 documented as of this encounter Care Teams Donkey Engine Firer/Fireman Relationship Specialty Start Date End Date Osmin Marquez MD [address] [place] [address] 7 [place] [address] [email or web address] PCP - General 05/19/17 06/01/23 Stella Oneal MD [address] [place] [address] 7 [place] [address] [email or web address] PCP - General Family Medicine 06/02/23 07/02/24 Aliza Marin MBBS [address] [place] [address] [email or web address] PCP - General Medical Oncology 07/03/24 08/08/24 Stella Oneal MD [address] [place] [address], [facility] [address] [place] [address] [email or web address] PCP - General Family Medicine 08/09/24 Osmin Marquez MD [address] [place] [address], [facility] [address] [address] [email or web address] Insurance Assigned Provider 12/02/18 01/04/21 Osmin Marquez MD [address] [place] [address], [address] [place] [phone] [email or web address] Insurance Assigned Provider 11/07/21 08/06/23 Stella Oneal MD [address] [place] [address] [address] [place] [id number] [email or web address] Insurance Assigned Provider 11/04/24 Aliza Marin MBBS [address] [place] [address] [email or web address] Primary Oncologist Medical Oncology 05/03/25 documented as of this encounter Additional Source Comments The information contained in this document represents components of the legal health record. It is not the complete legal health record.[facility]
--- OUTSIDE RECORDS SUMMARY | 2025-07-10 18:01 | XMS_ITS | Encounter Summary ---
Author Organization [facility] Address [address] [place] [address] Phone Care Team Providers Care Threat Monitoring Analyst Name Role Phone Osmin Marquez MD Primary Care Provider [phone] Osmin Marquez MD Unavailable Osmin Marquez MD Unavailable [phone] Stella Oneal MD Primary Care Provider Aliza Marin Primary Care Provider Stella Oneal MD Primary Care Provider Stella Oneal MD Unavailable [phone] Aliza Marin Unavailable Encounter Details Date Type Department Care Team (Latest Contact Info) Description 09/20/2019 Transcribe Orders [facility] 30 [place] [address] Mark Jaramillo DO 22 [place] [address] Screening for condition (Primary Dx) Social History [...] Description 07/15/2025 8:00 AM EST Office Visit [facility] Rheumatology [address] [place] [address] Ping Gandara DO 22 [facility], [address] [place] [address] [email or web address] 08/12/2025 8:00 AM EST Office Visit [address] [address] Stella Oneal MD 234 [facility] 7 [place] [address] [email or web address] 09/02/2025 10:00 AM EST Office Visit [facility] Clinic 10 [place] [address] Jessica Diaz PA-C [address] [address] 11/07/2025 9:20 AM EDT Office Visit [facility] 30 [place] [address] Aliza Marin MBBS 30 [place] [address] 12/02/2025 8:00 AM EDT Office Visit [facility] [address] 3rd Floor, [address] [place] [address] Valerie Ramos, TAMAR 22 [facility], [address] [place] [address] [email or web address] documented as of this encounter Results * Microalbumin/creatinine ratio, random urine (01/25/2020 8:32 AM EDT) URINE MICROALBUMIN 1.6 0 - 2.3 mg/dL [facility] URINE CREATININE 201 mg/dL [facility] MICROALB/CRE RATIO 8.0 0 - 20 mg/g Cre [facility] Urine (Urine) 01/25/2020 8:3 2 AM EDT 01/25/2020 8:36 AM EDT us Mark Jaramillo DO LAB URINE ORDERABLES Final Resul t Performing Organization Address City/[facility]/ZIP Co de Phone Number [address] [address] * (ABNORMAL) Hemoglobin A1c (01/25/2020 8:17 AM EDT) HEMOGLOBIN A1C 6.4(H) 4.3 - 5.8 % [facility] Blood 01/25/2020 8:17 AM EDT 01/25/2020 8:19 AM EDT us Mark Jaramillo DO LAB BLOOD BKR ORDERABLES Final R esult Performing Organization Address City/[facility]/ZIP Co de Phone Number [address] [address] documented in this encounter Visit Diagnoses Diagnosis Screening for condition- Primary Screening for unspecified condition documented in this encounter Additional Health Concerns Infection Onset Date Last Indicated Resolved Time MRSA 06/19/2024 06/19/2024 Assessment Noted Time PHQ-2 Depression Total Score: 0 01/12/20 19 10:33 AM EDT documented as of this encounter Care Teams Threat Monitoring Analyst Relationship Specialty Start Date End Date Osmin Marquez MD [address] [place] [address], [address] [place] [address] [email or web address] PCP - General 05/19/17 06/01/23 Stella Oneal MD [address] [place] [address], [facility] [address] [address] [email or web address] PCP - General Family Medicine 06/02/23 07/02/24 Aliza Marin MBBS [address] [place] [address] [email or web address] PCP - General Medical Oncology 07/03/24 08/08/24 Stella Oneal MD [address] [place] [address] [address] [place] [phone] [email or web address] PCP - General Family Medicine 08/09/24 Osmin Marquez MD [address] [place] [address], [facility] [address] [place] [phone] [email or web address] Insurance Assigned Provider 12/02/18 01/04/21 Osmin Marquez MD [address] [place] [address], [facility] [address] [phone] [email or web address] Insurance Assigned Provider 11/07/21 08/06/23 Stella Oneal MD [address] [place] [address] [address] [place] [phone] [email or web address] Insurance Assigned Provider 11/04/24 Aliza Marin MBBS [address] [place] [address] [email or web address] Primary Oncologist Medical Oncology 05/03/25 documented as of this encounter Additional Source Comments The information contained in this document represents components of the legal health record. It is not the complete legal health record.[facility]
--- OUTSIDE RECORDS SUMMARY | 2025-07-10 18:01 | XMS_ITS | Encounter Summary ---
Author Organization [facility] Address [address] [place] [address] Phone Care Team Providers Care Ethylene Plant Operator Name Role Phone Stella Oneal MD Primary Care Provider Aliza Marin Primary Care Provider Stella Oneal MD Primary Care Provider Stella Oneal MD Unavailable Aliza Marin Unavailable Reason for Referral * Molecular Pathology - Closed Specialty Diagnoses / Procedures Referred By Nadege justice Referred To Contact Diagnoses Hyperlipidemia LDL goal <70 JOHNSON (nonalcoholic steatohepatitis) Procedures Hemochromatosis Gene Analysis Jessica Diaz PA 10 [place] [address] Phone: tel: fax: Referral ID Status Reason Start Date Expiration Date Visits Re quested Visits Authorized [id number] Closed 06/06/2024 06/06/2025 1 1 Encounter Details Date Type Department Care Team (Latest Contact Info) Description 06/06/2024 Transcribe Orders [facility] Phleb Paula [address] [address] Jessica Diaz PA 10 [place] [address] Hyperlipidemia LDL goal <70 (Primary Dx); JOHNSON [...] Description 07/15/2025 8:00 AM EST Office Visit [facility] Rheumatology 22 [place] [address] Ping Gandara, 22 [facility], [address] [place] [address] [email or web address] 08/12/2025 8:00 AM EST Office Visit [facility] Medicine [address] [place] [address] Stella Oneal MD 234 [facility], [address] [place], [place] [id number] [email or web address] 09/02/2025 10:00 AM EST Office Visit [facility] 10 [place] [address] Jessica Diaz PA-C [address] [address] 11/07/2025 9:20 AM EDT Office Visit [facility] [place] [facility] 30 [place] [address] Aliza Marin MBBS 30 [place] [address] 12/02/2025 8:00 AM EDT Office Visit [facility] [address] [place] [address] 3rd Floor, [address] [place] [address] Valerie Ramos, TAMAR 22 [facility], [address] [place] [address] documented as of this encounter Results * Ferritin (06/06/2024 11:39 AM EST) FERRITIN 52 30 - 400 ug/L [facility] Blood 06/06/2024 11:3 9 AM EST 06/06/2024 11:43 AM EST us Jessica LIZ LAB BLOOD BKR ORDERABLES Fi nal Result [address] [address] * (ABNORMAL) Iron and iron binding capacity (06/06/2024 11:39 AM EST) IRON 71 45 - 160 ug/dL [facility] IRON BINDING CAPACITY 403 228 - 428 ug/dL [facility] TRANSFERRIN SATURAT. 18(L) 20 - 55 % [facility] Blood 06/06/2024 11:3 9 AM EST 06/06/2024 11:43 AM EST us Jessica LIZ LAB BLOOD BKR ORDERABLES Fi nal Result Performing Organization Address [facility] Co de Phone Number [address] [address] * (ABNORMAL) Lipid panel (06/06/2024 11:39 AM EST) HDL 71 mg/dL [facility] Comment: Interpretation <40 mg/dL: Low HDL cholesterol (major risk factor for CHD) Greater than or equal to 60 mg/dL: High HDL cholesterol ( negative risk factor for CHD) HDL - cholesterol is affected by a number of factors, e.g. smoking, excerise, hormones, sex and age. CHOLESTEROL 131 0 - 240 mg/dL [facility] TRIGLYCERIDES 54 30 - 160 mg/dL [facility] LDL 49(L) 50 - 129 mg/dL [facility] Comment: LDL levels in terms of risk for coronary heart disease: <100 mg/dL: Optimal 100-129 mg/dL: Near or above optimal 130-159 mg/dL: Borderline high 160-189 mg/dL: High >190 mg/dL: Very High CARDIAC RISK RATIO 1.8(L) 3.4 - 5.0 C [facility] Blood 06/06/2024 11:3 9 AM EST 06/06/2024 11:42 AM EST Jessica LIZ LAB BLOOD BKR ORDERABLES Fi nal Result Performing Organization Address [facility] Co de Phone Number [address] [address] * Hemochromatosis Gene Analysis (06/06/2024 11:39 AM EST) HFE Gene analysis SEE NOTE 01:24 PM [facility] DPT OF LAB MED AND PAT+ Comment: [...] ADDITIONAL INFORMATION An online research opportunity called [employer] (Pow[employer]), a project of [employer], is available for the recipient of this genetic test. This patient registry collects de-identified genetic and health information to advance the knowledge of genetic variants. [facility] is a collaborator of [employer]. This may not be applicable for all [...] allogenic donors will interfere with testing. Call [facility] for instructions for testing patients who [...] its performance characteristics determined by [facility] in a manner consistent with CLIA requirements. [...] of the testing process was performed at [facility] site [id number]. Blood 06/06/2024 11:3 9 AM EST 06/06/2024 11:42 AM EST us Jessica LIZ LAB BLOOD BKR ORDERABLES Fi nal Result [facility] DPT OF LAB MED AND PAT+ [address] [place] [address] * (ABNORMAL) Liver fibrosis test (06/06/2024 11:39 AM EST) Fibrosis score 0.76 [facility] Interpretation (Fibrosis) SEE NOTE [facility] Comment: (NOTE) severe fibrosis Fibro Test Score [...] HCV Fibrosis Grade F4 Q [facility] NECROINFLAMM SCORE 0.27 Q [facility] [...] A2 Macroglobulin 376(H) 106 - 279 mg/dL [facility] Haptoglobin 97 43 - 212 mg/dL [facility] Apolipoprotein A1 170 94 - 176 mg/dL [facility] TOTAL BILIRUBIN 0.7 0.2 - 1.2 mg/dL [facility] GGT 90(H) 3 - 70 U/L [facility] ALT 31 9 - 46 U/L [facility] Specimen/Product ID [id number] [facility] Comments (Chemistry) SEE NOTE [facility] Comment: (NOTE) The reliability of results is dependent on compliance with the preanalytical and analytical conditions recommended by [employer]. The tests have to be deferred for: [...] The performance characteristics have been determined by [facility]. It has not been cleared or approved by the U.S. Food and Drug Administration. Performance characteristics refer to the analytical performance of the test. [employer], the associated logo, [employer] and all associated [facility] valle are the registered trademarks of [employer]. All third green party valle - (R) and (TM) - are the property of their respective owners. (C) [id number] [employer]. All rights reserved. Blood 06/06/2024 11:3 9 AM EST 06/06/2024 11:42 AM EST us Jessica LIZ LAB BLOOD BKR ORDERABLES Fi nal Result [facility] [address] [place] [address], [facility] [phone] * (ABNORMAL) Comprehensive metabolic panel (06/06/2024 11:39 AM EST) SODIUM 138 133 - 146 mmol/L [facility] POTASSIUM 4.2 3.3 - 5.1 mmol/L [facility] CHLORIDE 105 96 - 108 mmol/L [facility] CO2 20(L) 21 - 35 mmol/L [facility] BUN 18 6 - 19 mg/dL [facility] CREATININE 0.90 0.5 - 1.5 mg/dL [facility] GLUCOSE 112(H) 70 - 99 mg/dL [facility] ALBUMIN 4.2 3.9 - 4.8 g/dL [facility] TOTAL PROTEIN 7.8 6.5 - 8.0 g/dL [facility] CALCIUM 9.1 8.4 - 10.3 mg/dL [facility] ALKALINE PHOSPHATASE 72 39 - 117 U/L [facility] TOTAL BILIRUBIN 0.7 0.0 - 1.2 mg/dL [facility] AST 43(H) 0 - 37 U/L [facility] ALT 38 0 - 40 U/L [facility] GLOBULIN 3.6 1 - 4.8 g/dL [facility] EGFR 93 >59 mL/min/1.7 3m2 [facility] Comment:Estimated glomerular filtration rate calculated using the CKD-EPI refit equation. ANION GAP 17 10 - 20 mmol/L [facility] Blood 06/06/2024 11:3 9 AM EST 06/06/2024 11:43 AM EST us Jessica LIZ LAB BLOOD BKR ORDERABLES Fi nal Result Performing Organization Address City/[facility] Co de Phone Number [address] [address] * (ABNORMAL) CBC (06/06/2024 11:39 AM EST) WBC 5.61 4.00 - 11.00 K/uL [facility] RBC 4.05(L) 4.50 - 5.90 M/uL [facility] HGB 11.8(L) 13.5 - 17.5 g/dL [facility] HCT 35.7(L) 41.0 - 53.0 % [facility] PLT 107(L) 150 - 450 K/uL [facility] MCV 88.1 80.0 - 100.0 fL [facility] MCH 29.1 27.0 - 31.0 pg [facility] MCHC 33.1 32.0 - 36.0 g/dL [facility] RDW 13.2 11.5 - 14.5 % [facility] MPV 11.4 8.4 - 12.0 fL [facility] NRBC 0.00 0.00 /100 WBCs [facility] ABSOLUTE NRBC 0.00 0.00 K/uL [facility] Blood 06/06/2024 11:3 9 AM EST 06/06/2024 11:43 AM EST us Jessica LIZ LAB BLOOD BKR ORDERABLES Fi nal Result [address] [address] * Ceruloplasmin (06/06/2024 11:39 AM EST) CERULOPLASMIN 34 20 - 60 mg/dL [facility] Blood 06/06/2024 11:3 9 AM EST 06/06/2024 11:42 AM EST us Jessica LIZ LAB BLOOD ORDERABLES Final Result Performing Organization Address City/[facility]/ZIP Co de Phone Number [address] [address] * Smooth Muscle Antibody (06/06/2024 11:39 AM EST) SMOOTH MUSCLE AB NEGATIVE AT 1:20 [facility] Comment: Performing Pathologist, Josemanuel Isabel M.D., Ph.D. [phone] Normal: Negative at 1:20 Blood 06/06/2024 11:3 9 AM EST 06/06/2024 11:42 AM EST us Jessica LIZ LAB BLOOD ORDERABLES Final Result Performing Organization Address [facility] Co de Phone Number [address] [address] * Anti-Mitochondrial Antibody (AMA) (06/06/2024 11:39 AM EST) MITOCHONDRIAL AB NEGATIVE AT 1:20 [facility] Comment: Performing Pathologist, Josemanuel Isabel M.D., Ph.D. [id number] Normal: Negative at 1:20 Blood 06/06/2024 11:3 9 AM EST 06/06/2024 11:42 AM EST us Jessica LIZ LAB BLOOD ORDERABLES Final Result Performing Organization Address [facility] Co de Phone Number [address] [address] * Liver kidney microsomal (LKM1) antibodies (06/06/2024 11:39 AM EST) LKM1 ANTIBODIES <5.0 <=20.0 (Negative) [facility] Blood 06/06/2024 11:3 9 AM EST 06/06/2024 11:42 AM EST us Jessica LIZ LAB BLOOD ORDERABLES Final Result Performing Organization Address City/[facility]/ZIP Co de Phone Number [facility] [address] [place] [address] * AFP (non-maternal specimens) (06/06/2024 11:39 AM EST) Pathologist [facility] AFP (NON-MATERNAL) <1.8 <7.9 ng/mL [facility] Comment: Test Methodology Maritza [id number] Patient results determined by assays using different manufacturers or methods may not be comparable. Blood 06/06/2024 11:3 9 AM EST 06/06/2024 11:43 AM EST Jessica LIZ LAB BLOOD BKR ORDERABLES Fi nal Result [address] [id number] * Eoqwt-4-iwlafenkjjz phenotyping (06/06/2024 11:39 AM EST) Pathologist [facility] ALPHA 1 ANTITRYPSIN 172 100 - 190 mg/dL [facility] Comment: (NOTE) ADDITIONAL INFORMATION Method: Nephelometry A1A PHENOTYPE MM bands [facility] Comment: (NOTE) A single M isoform is detected. In the context of a normal ofrgu-9-jxzlvegwifx concentration, this is consistent with an MM phenotype. ADDITIONAL INFORMATION Method: Isoelectric Focusing, This assay identifies the phenotype of the circulating cpgtu-6-hbxwsrpocsy (A1A) protein. If the patient is on replacement therapy or has been recently transfused, the phenotype will detect patient and replacement or transfused plasma A1A protein. This test also cannot detect a null allele which could be responsible for an A1A deficiency. Blood 06/06/2024 11:3 9 AM EST 06/06/2024 11:42 AM EST us Jessica LIZ LAB BLOOD ORDERABLES Final Result [facility] [address] [address] [place] [address] documented in this encounter Visit Diagnoses Diagnosis Hyperlipidemia LDL goal <70- Primary Other and unspecified hyperlipidemia JOHNSON (nonalcoholic steatohepatitis) Other chronic nonalcoholic liver disease documented in this encounter Additional Health Concerns Infection Onset Date Last Indicated Resolved Time MRSA 06/19/2024 06/19/2024 Assessment Noted Time PHQ-2 Depression Total Score: 0 07/13/20 10:16 PM EST documented as of this encounter Care Teams Ethylene Plant Operator Relationship Specialty Start Date End Date Stella Oneal MD [address] [place] [address] [place] [address] [email or web address] PCP - General Family Medicine 06/02/23 07/02/24 Aliza aMrin MBBS [address] [place] [address] [email or web address] PCP - General Medical Oncology 07/03/24 08/08/24 Stelal Oneal MD [address] [place] [address] 7 [place] [address] [email or web address] PCP - General Family Medicine 08/09/24 Stella Oneal MD [address] [place] [address] 7 [place] [address] [email or web address] Insurance Assigned Provider 11/04/24 Aliza Marin MBBS [address] [place] [address] Primary Oncologist Medical Oncology 05/03/25 documented as of this encounter Additional Source Comments The information contained in this document represents components of the legal health record. It is not the complete legal health record.[facility]
--- OUTSIDE RECORDS SUMMARY | 2025-07-10 18:01 | XMS_ITS | Encounter Summary ---
Author Organization [facility] Address [address] [place] [address] Phone Care Team Providers Care V Belt Finisher Name Role Phone Stella Oneal MD Primary Care Provider Aliza Marin Primary Care Provider Stella Oneal MD Primary Care Provider Stella Oneal MD Unavailable Aliza Marin Unavailable Encounter Details Date Type Department Care Team (Late st Contact Info) Description 04/24/2024 Procedure Pass [facility] Endoscopy Admitting Dept Virtual Department [address] [place] [address] Social History Tobacco Use Types Packs/Day Years [...] Description 07/15/2025 8:00 AM EST Office Visit [facility] Rheumatology [address] [place] [address] Ping Gandara, 22 [facility], [address] [place] [address] [email or web address] 08/12/2025 8:00 AM EST Office Visit [address] [address] Stella Oneal MD 234 [facility] 7 [place] [address] [email or web address] 09/02/2025 10:00 AM EST Office Visit [facility] 10 [place] [address] Jessica Diaz PA-C [address] [address] 11/07/2025 9:20 AM EDT Office Visit [facility] 30 [place] [address] Aliza Marin MBBS 30 [place] [address] 12/02/2025 8:00 AM EDT Office Visit [facility] [address] 3rd Floor, [address] [place] [address] Valerie Ramos, TAMAR 22 [facility], [address] [place] [address] [email or web address] documented as of this encounter Visit Diagnoses Not on filedocumented in this encounter Additional Health Concerns Infection Onset Date Last Indicated Resolved Time MRSA 06/19/2024 06/19/2024 Assessment Noted Time PHQ-2 Depression Total Score: 0 07/13/20 10:16 PM EST documented as of this encounter Care Teams V Belt Finisher Relationship Specialty Start Date End Date Stella Oneal MD [address] [place] [address] 7 [place] [address] [email or web address] PCP - General Family Medicine 06/02/23 07/02/24 Aliza Marin MBBS [address] [place] [address] [email or web address] PCP - General Medical Oncology 07/03/24 08/08/24 Stella Oneal MD 234 [facility] 7 [place] [address] [email or web address] PCP - General Family Medicine 08/09/24 Stella Oneal MD [address] [place] [address] 7 [place] [address] [email or web address] Insurance Assigned Provider 11/04/24 Aliza Marin MBBS [address] [place] [address] [email or web address] Primary Oncologist Medical Oncology 05/03/25 documented as of this encounter Additional Source Comments The information contained in this document represents components of the legal health record. It is not the complete legal health record.[facility]
== END 2025-07-10 11:12 | disposition home or self-care (01) ==
LOC: HO.HMGAL 11:11
PROVIDERS: PCP Family Medicine Sports Medicine; Visit Provider Registered Nurse Emergency
DX: J30.89 Other allergic rhinitis (principal)
CPT/HCPCS: 95117; 95165